=== PATIENT | female | born 1945 | race Caucasian/White ===

== ENCOUNTER → 2016-04-22 | Outpatient (CLI) | payer MEDICARE, MEDICAID ==
[~2016-04-22] MED LIST: /ALEN70TA OR; /DULO30CA OR; /PANT40TA OR; ACET65TA OR; ALEN10TA2 OR; AMBI5TAB OR; AMLO5TAB OR; ASPI81TA3 OR; BACL10TA2 OR; BISA10SU2 PR; BISA5TA OR; CALTRATE 600+D PO; CELE40TA OR; COLA100C2 OR; COZA100T OR; DEPA500T2 OR; ENOX40SY SC; FIBERCHOICE PO; LIDO5DIS TD; MILKSUS OR; NORV5TAB OR; ONE A DAY WOMENS PO; OPAN10TA17 OR; OXYC10TA12 OR; PANTOPRAZOLE PO; PERC5TAB8 OR; PERC7.5T8 OR; RANI150C OR; SIMV20TA2 OR; VESICARE PO; VITAMIN D50000 UNT OR; VOLTARIN PO; dulcolax
== END ==
LOC: M HL 13:51
PROVIDERS: ATTEND Nurse Practitioner Family
DX: R63.5 Abnormal weight gain (principal); Z98.84 Bariatric surgery status

== ENCOUNTER → 2016-05-07 | Outpatient (CLI) | payer MEDICARE, MEDICAID | END | disposition home or self-care (01) | LOC: M HL 10:17 | PROVIDERS: ATTEND Nurse Practitioner Family | DX: Z98.84 Bariatric surgery status (principal); R63.5 Abnormal weight gain ==

== ENCOUNTER → 2016-05-21 | Outpatient (CLI) | payer MEDICARE, MEDICAID | LOC: M HL 12:55 | PROVIDERS: ATTEND Nurse Practitioner Family | DX: Z98.84 Bariatric surgery status (principal); R63.5 Abnormal weight gain; R73.03 Prediabetes ==

== ENCOUNTER 2016-12-15 08:03 | Day surgery (SDC) | payer MEDICARE, MEDICAID ==
[~2016-12-15] VITALS: Ht 160 cm; Wt 98.4 kg
[~2016-12-15 08:03] MED LIST changes: +ACETAMINOPHEN 325 MG TAB PO PRN; +ACETYLCHOLINE OPHTH SOLN 1% 2ML (MIOCHOL-E) As Ordered ONE; +AMPH10CA PO; +BSS with VANC/TOB/EPI for EYE CASES IR ONE; +BUPR1TAB52 PO; +CALTCHW4 PO; +CEFUROXIME 1MG/0.1ML INTRACAMERAL INJ As Ordered ONE; +CENTTAB36 PO; +CYCLOPENTOLATE 2% OPHTH SOLN 2ML BTL OD ONE; +DRIS50002 PO; +DULO1CAP3 PO; +FE G325T PO; +FENT50PA TD; +FERR32TA PO; +FOSA70TA PO; +HEALON DUET (HEALON 10MG/ML 0.55ML & HEALON ENDOCOAT 30MG/ML 0.85ML) As Ordered ONE; +LIDOCAINE 1% SDV 5 ML VIAL As Ordered ONE; +LIDOCAINE 3.5 % 1ML OPHTH TOPICAL GEL OU ONE; +LR 500 ML IV ONE; +MIDAZOLAM INJ 2 MG/2 ML VIAL (J2250) As Ordered ONE; +MOXIFLOXACIN IN BSS 0.25MG/0.25ML INTRACAMERAL INJ (OR EYE ONLY)(J2280) As Ordered ONE; +OFLOXACIN 0.3 % (OCUFLOX) OPTH SOL 5ML OD ONE; +OMEP20CA3 PO; +PHENYLEPHRINE 2.5% OPHTH SOL 2ML OD ONE; +POVIDONE-IODINE 5% OPHTH PREP SOL 30ML As Ordered ONE; +PROPARACAINE 0.5% OPHTH SOL 15ML OD PRN; +ROPI0.25 PO; +THYR60TA SL; +TRAV04OPD OU; +TRAZ50TA11 PO; +TRIAMCINOLONE PRES FR 40 MG/ML 1ML(TRIESENCE)(OR EYE ONLY)(J3300 PER 1MG) As Ordered ONE; +TROPICAMIDE 1% OPHTH SOLN 2ML OD ONE; +[UNRECOGNIZED DRUG - CODE] SL; +fentaNYL 100 MCG/2 ML INJECTION (J3010) As Ordered ONE
[2016-12-15] MEDS ORDERED: LIDOCAINE 1% SDV 5 ML VIAL SQ PRN (08:15)
[2016-12-15] MEDS ORDERED: HEALON DUET (HEALON 10MG/ML 0.55ML & HEALON ENDOCOAT 30MG/ML 0.85ML) As Ordered ONE (09:28)
[2016-12-15] MEDS ORDERED: KETOROLAC 0.5% OPHTH SOLN OD ONE (09:30)
[2016-12-15] MEDS ORDERED: AcetaZOLAMIDE 500 MG ER CAP PO ONE (09:30)
[2016-12-15] MEDS ORDERED: TRIMETHOBENZAMIDE 300 MG CAP PO PRN (09:30)
[2016-12-15 09:35] VITALS: BP 115/65
--- NOTE | 2016-12-15 09:37 | RO ---
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 PROCEDURE: Phacoemulsification with intraocular lens implantation along with insertion of the Malyugin ring with endocyclophotocoagulation and placement of the Glaukos iStent intraocular lens (IOL) power was HOYA +21.5 diopters. SURGEON: Dr. Amee Rogers MANAGER QA: None. ANESTHESIA: COMPLICATIONS: None. DESCRIPTION OF PROCEDURE: The patient was brought to the operating room and laid in the supine position. The eye was prepped and draped in a sterile fashion for ophthalmic surgery and a lid speculums was placed. A sideport incision was made and Entocort was injected into the anterior chamber. Temporal clear corneal incision was made with a 2.5 mm keratome followed by placement of the 7 mm Malyugin ring with the help of the editorial manager. The pupil was then nicely dilated. This was followed by a capsulorrhexis and hydrodissection. The nucleus was rotated within the capsular bag and phacoemulsification was carried out in a divide and conquer method within the capsular bag. Cortical material was then aspirated using irrigation and aspiration cannula. Healon was placed in the capsular bag and in the intraocular lens inserted. Healon was then placed in the ciliary sulcus and the ciliary processes were visualized on the video screen with the help of the EndoProbe. Endocyclophotocoagulation was the done 280 degrees at 0.25 mW under direct visualization. Good results were noted as noted by shaking of the ciliary processes. Healon was then placed into the anterior chamber to visualize the infranasal. Trabecular iStent was then placed. Good reflex was noted. This was done under high magnification with the patient's head turned away from the surgeon. Excess viscoelastic was aspirated. The wound was hydrated. The lid speculum was removed. The patient was returned to the recovery room in stable condition.
== END 2016-12-15 10:21 | disposition home or self-care (01) ==
LOC: M SDC 08:03
PROVIDERS: ATTEND Ophthalmology
DX: H25.9 Unspecified age-related cataract (principal); H40.9 Unspecified glaucoma; H57.03 Miosis; I10 Essential (primary) hypertension; E78.5 Hyperlipidemia, unspecified; R73.03 Prediabetes; H21.9 Unspecified disorder of iris and ciliary body; Z88.0 Allergy status to penicillin; Z79.899 Other long term (current) drug therapy; Z92.3 Personal history of irradiation; Z92.21 Personal history of antineoplastic chemotherapy; Z87.891 Personal history of nicotine dependence; Z86.79 Personal history of other diseases of the circulatory system
CPT/HCPCS: 66183; 66711; 66982; C1783; J2250; J2280; J3010; V2632

== ENCOUNTER 2016-12-19 18:38 | Emergency (ER) | payer MEDICARE, MEDICAID ==
[~2016-12-19] VITALS: Ht 160 cm; Wt 99.1 kg
[2016-12-19 18:38] VITALS: BP 162/114
[~2016-12-19 18:38] MED LIST changes: -ACETAMINOPHEN 325 MG TAB PO PRN; -ACETYLCHOLINE OPHTH SOLN 1% 2ML (MIOCHOL-E) As Ordered ONE; -BSS with VANC/TOB/EPI for EYE CASES IR ONE; -CEFUROXIME 1MG/0.1ML INTRACAMERAL INJ As Ordered ONE; -CYCLOPENTOLATE 2% OPHTH SOLN 2ML BTL OD ONE; -HEALON DUET (HEALON 10MG/ML 0.55ML & HEALON ENDOCOAT 30MG/ML 0.85ML) As Ordered ONE; -LIDOCAINE 1% SDV 5 ML VIAL As Ordered ONE; -LIDOCAINE 3.5 % 1ML OPHTH TOPICAL GEL OU ONE; -LR 500 ML IV ONE; -MIDAZOLAM INJ 2 MG/2 ML VIAL (J2250) As Ordered ONE; -MOXIFLOXACIN IN BSS 0.25MG/0.25ML INTRACAMERAL INJ (OR EYE ONLY)(J2280) As Ordered ONE; -OFLOXACIN 0.3 % (OCUFLOX) OPTH SOL 5ML OD ONE; -PHENYLEPHRINE 2.5% OPHTH SOL 2ML OD ONE; -POVIDONE-IODINE 5% OPHTH PREP SOL 30ML As Ordered ONE; -PROPARACAINE 0.5% OPHTH SOL 15ML OD PRN; -TRIAMCINOLONE PRES FR 40 MG/ML 1ML(TRIESENCE)(OR EYE ONLY)(J3300 PER 1MG) As Ordered ONE; -TROPICAMIDE 1% OPHTH SOLN 2ML OD ONE; -fentaNYL 100 MCG/2 ML INJECTION (J3010) As Ordered ONE
[2016-12-19] MEDS ORDERED: PRED1SUS (18:48)
[2016-12-19] MEDS ORDERED: ACUV0.45 (18:48)
[2016-12-19] MEDS ORDERED: TOBR0.3S (18:48)
--- NOTE | 2016-12-19 22:10 | REPUSA ---
Clinical statement: Pain, swelling. Findings: Venous Doppler imaging of the right upper extremity was performed. The internal jugular vei n compresses normally and demonstrates normal color Doppler flow. Normal venous wave forms are seen w ithin the subclavian vein. The axillary, brachial, and basilic veins compress normally and demonstrat e normal color Doppler flow. Normal augmentation is seen. Impression: No evidence of deep vein thrombosis in the right upper extremity.
== END 2016-12-19 23:02 | disposition home or self-care (01) ==
LOC: M ED 18:38
DX: M79.641 Pain in right hand (principal); M25.531 Pain in right wrist; I10 Essential (primary) hypertension; D64.9 Anemia, unspecified; E78.5 Hyperlipidemia, unspecified; F41.9 Anxiety disorder, unspecified; M51.36 Other intervertebral disc degeneration, lumbar region; Z87.19 Personal history of other diseases of the digestive system; Z86.69 Personal history of other diseases of the nervous system and sense organs; Z86.718 Personal history of other venous thrombosis and embolism; Z87.39 Personal history of other diseases of the musculoskeletal system and connective tissue; Z98.0 Intestinal bypass and anastomosis status; Z98.890 Other specified postprocedural states; Z87.891 Personal history of nicotine dependence

== ENCOUNTER → 2018-01-22 | Outpatient (CLI) | payer MEDICARE, MEDICAID ==
[2018-01-22 15:20] LABS: HEMATOCRIT 43.7 % (36.0-47.0); HEMOGLOBIN 14.1 g/dl (12.0-15.5); MEAN CORPUSCULAR HEMOGLOBIN 31.1 pg (27.0-33.0); MEAN CORPUSCULAR HGB CONC 32.3 g/dl (32.0-36.5); MEAN CORPUSCULAR VOLUME 96.5 fl (80.0-96.0); PLATELET COUNT, AUTOMATED 301 10^3/uL (150-450); RED BLOOD COUNT 4.53 10^6/uL (4.00-5.40); RED CELL DISTRIBUTION WIDTH 14.3 % (11.5-14.5)
[2018-01-22 15:44] LABS: ALBUMIN 3.4 GM/DL (3.2-5.2); ALBUMIN/GLOBULIN RATIO 1.17 (1.00-1.93); ALKALINE PHOSPHATASE 104 U/L (45-117); ALT/SGPT 20 U/L (12-78); ANION GAP 6 MEQ/L (8-16); AST/SGOT 30 U/L (7-37); BILIRUBIN,TOTAL 0.5 MG/DL (0.2-1.0); BLOOD UREA NITROGEN 10 MG/DL (7-18); CALCIUM LEVEL 8.8 MG/DL (8.8-10.2); CARBON DIOXIDE LEVEL 29 MEQ/L (21-32); CHLORIDE LEVEL 109 MEQ/L (98-107); CHOLESTEROL LEVEL 183 MG/DL (<200); CHOLESTEROL RISK RATIO 2.815 (<5); GLOMERULAR FILTRATION RATE > 60.0 (>39); GLUCOSE, FASTING 87 MG/DL (70-100); HDL CHOLESTEROL 65 MG/DL (>40); LDL CHOLESTEROL 105 MG/DL (<100); NON-HDL-C 118 MG/DL; POTASSIUM SERUM 4.2 MEQ/L (3.5-5.1); SODIUM LEVEL 144 MEQ/L (136-145); TOTAL PROTEIN 6.3 GM/DL (6.4-8.2); TRIGLYCERIDES LEVEL 64 MG/DL (<150)
== END ==
LOC: M LAB 13:42
DX: G25.81 Restless legs syndrome (principal); M54.6 Pain in thoracic spine; M53.3 Sacrococcygeal disorders, not elsewhere classified; M51.36 Other intervertebral disc degeneration, lumbar region; I10 Essential (primary) hypertension; M47.817 Spondylosis without myelopathy or radiculopathy, lumbosacral region; M70.60 Trochanteric bursitis, unspecified hip
CPT/HCPCS: 72072

== ENCOUNTER → 2018-02-05 | Outpatient (CLI) | payer MEDICARE, MEDICAID | LOC: M RAD 18:05 | DX: M53.3 Sacrococcygeal disorders, not elsewhere classified (principal); I10 Essential (primary) hypertension; M46.1 Sacroiliitis, not elsewhere classified; M51.36 Other intervertebral disc degeneration, lumbar region | CPT/HCPCS: 72146 ==

== ENCOUNTER 2018-04-27 07:08 | Day surgery (SDC) | payer MEDICARE, MEDICAID ==
[~2018-04-27] VITALS: Ht 154.9 cm; Wt 80.3 kg
[~2018-04-27 07:08] MED LIST changes: +ACUV0.45; +BRIN10TA4 PO; -DRIS50002 PO; +DRIS50003 PO; +FENT1DIS35 TD; +LR 1,000 ML IV ONE; +PRED1SUS2; -ROPI0.25 PO; +ROPI0.253 PO; +THYR60TA PO; +TOBR0.3S; +TRAZ-160 PO; -TRAZ50TA11 PO; +XALA0.007 OU; +ceFAZolin SOD 1 GM in D5W MINI-BAG PLUS 50 ML IV ONE
[2018-04-27] MEDS ORDERED: LIDOCAINE 1% MDV 20ML VIAL As Ordered ONE (08:39)
[2018-04-27] MEDS ORDERED: BUPIVACAINE/EPIN 0.25% 30 ML VIAL As Ordered ONE (09:46)
[2018-04-27] MEDS ORDERED: LIDOCAINE 1% SDV INJ 30 ML VIAL As Ordered ONE (09:47)
[2018-04-27] MEDS ORDERED: LIDOCAINE 2% INJ 100 MG/5 ML SDV (FOR ANES.) As Ordered ONE (09:52)
[2018-04-27] MEDS ORDERED: PROPOFOL 200 MG/20 ML VIAL As Ordered ONE ×2 (09:52→11:17)
[2018-04-27] MEDS ORDERED: MIDAZOLAM INJ 2 MG/2 ML VIAL (J2250) As Ordered ONE (09:52)
[2018-04-27] MEDS ORDERED: fentaNYL 100 MCG/2 ML INJECTION (J3010) As Ordered ONE (09:52)
[2018-04-27] MEDS ORDERED: LevoFLOXacin(LEVAQUIN)500 MG/100 ML BAG (J1956) As Ordered ONE (09:55)
[2018-04-27] MEDS ORDERED: LevoFLOXacin IV 500 MG in APPROPRIATE DILUENT 1 EA IV ONE (10:15)
[2018-04-27 11:33] VITALS: BP 103/54
--- NOTE | 2018-04-27 12:44 | REP ---
Specimen radiography: Left breast. History: Needle localization directed excisional biopsy for microcalcifications. Findings: Single view. Specimen demonstrates that the specimen contains at least two of the microcalcifications from the target grouping. These are adjacent to the localizer wire at the edge of the specimen. No other microcalcification is appreciated. Impression: At least two of the microcalcifications from the target cluster are contained within the excised specimen. Electronically Signed by Jimmy Russell MD 04/27/2018 11:22 A
--- NOTE | 2018-04-27 17:35 | REP ---
LEFT BREAST LOCALIZATION The procedure was performed under the direct supervision of Dr. Russell. The patient has a history of an a cluster of microcalcifications in the central areolar region seen on a [facility] mamm[facility] performed under 02/08/2018. A stereotactic left breast biopsy was attempted on 02/11/2018, however, there was not enough compression thickness for advancement of the needle. The risks and benefits of the procedure were explained to the patient and informed consent was obtained. A cranial caudal approach was utilized. The calcifications were localized using mammographic guidance. The skin was prepped and draped in a sterile fashion. 1% lidocaine was used as a local anesthetic. A 7.5 cm Grafton needle wire was inserted. Follow-up mammographic images demonstrate good needle placement. The patient tolerated the procedure well and there were no immediate complications. Reviewed by TESSA Ibrahim 04/27/2018 03:23 P Electronically Signed by Jimmy Russell MD 04/27/2018 05:26 P
--- NOTE | 2018-04-27 19:27 | ECGEPIP ---
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
--- NOTE | 2018-05-01 04:03 | RO ---
DATE OF PROCEDURE: 04/27/2018 PREOPERATIVE DIAGNOSIS: Left breast microcalcifications (abnormal mammogram). POSTOPERATIVE DIAGNOSIS: Left breast microcalcifications (abnormal mammogram). PROCEDURE: Left breast biopsy (after needle localization). SURGEON: Dr. David Garduno ANESTHESIA: Local plus sedation. ESTIMATED BLOOD LOSS: Minimal. FLUIDS: Crystalloid. BRIEF PROCEDURE SUMMARY: The patient was brought to the radiology suite where a needle localization of microcalcifications was performed. Once this was performed. The patient was brought to the operating room was prepped and draped in sterile fashion. Local lidocaine was infiltrated after adequate sedation was obtained. An elliptical incision around the needle itself was made and then using Allis clamps on each side and needle a core of tissue and then a sphere of tissue around the end of the needle/hook was performed with a combination of blunt and sharp dissection well as well as electrocautery and eventually this tissue was removed in its entirety. The needle was not seen on removal of this suggesting that adequate margins were obtained. This was sent to radiology and indeed microcalcifications were identified on the post biopsy specimen. The incision then was copiously irrigated until clear. Electrocautery was used to provide hemostasis and the dermis was brought together with 3-0 Vicryl, 4-0 Vicryl was used to approximate the skin. Steri-Strips and dry sterile dressing was applied. The patient was awakened from her anesthesia, brought to the recovery room awake, alert, hemodynamically stable. Sponge and needle counts correct times two.
== END 2018-04-27 12:45 | disposition home or self-care (01) ==
LOC: M SDC 07:08
PROVIDERS: ATTEND Surgery
DX: R92.1 Mammographic calcification found on diagnostic imaging of breast (principal); I10 Essential (primary) hypertension; E78.00 Pure hypercholesterolemia, unspecified; R73.01 Impaired fasting glucose; E03.9 Hypothyroidism, unspecified; E55.9 Vitamin D deficiency, unspecified; G25.81 Restless legs syndrome; K57.30 Diverticulosis of large intestine without perforation or abscess without bleeding; K21.9 Gastro-esophageal reflux disease without esophagitis; M12.9 Arthropathy, unspecified; M81.0 Age-related osteoporosis without current pathological fracture; M70.62 Trochanteric bursitis, left hip; B39.9 Histoplasmosis, unspecified; R06.83 Snoring; F32.9 Major depressive disorder, single episode, unspecified; Z88.0 Allergy status to penicillin; Z79.899 Other long term (current) drug therapy; Z92.21 Personal history of antineoplastic chemotherapy; Z86.718 Personal history of other venous thrombosis and embolism; Z87.81 Personal history of (healed) traumatic fracture; Z87.820 Personal history of traumatic brain injury; Z86.69 Personal history of other diseases of the nervous system and sense organs; Z78.0 Asymptomatic menopausal state; Z92.3 Personal history of irradiation; Z96.653 Presence of artificial knee joint, bilateral; Z98.84 Bariatric surgery status; Z96.1 Presence of intraocular lens
CPT/HCPCS: 19101; 76098; 88305; 93005; J1956; J2250; J3010

== ENCOUNTER → 2018-08-02 | Outpatient (CLI) | payer OTHER, MEDICAID ==
[~2018-08-02] MED LIST changes: -/DULO30CA OR; -/PANT40TA OR; +CYMB1CAP5 OR; -ENOX40SY SC; +FENT50DI33 TD; -FENT50PA TD; +LOVE1INJ SC; -LR 1,000 ML IV ONE; +PROT1TAB2 OR; -ceFAZolin SOD 1 GM in D5W MINI-BAG PLUS 50 ML IV ONE
[2018-08-02 10:57] LABS: HEMATOCRIT 42.9 % (36.0-47.0); HEMOGLOBIN 14.2 g/dl (12.0-15.5); MEAN CORPUSCULAR HEMOGLOBIN 29.7 pg (27.0-33.0); MEAN CORPUSCULAR HGB CONC 33.1 g/dl (32.0-36.5); MEAN CORPUSCULAR VOLUME 89.7 fl (80.0-96.0); PLATELET COUNT, AUTOMATED 294 10^3/uL (150-450); RED BLOOD COUNT 4.78 10^6/uL (4.00-5.40); WHITE BLOOD COUNT 3.7 10^3/uL (4.0-10.0)
[2018-08-02 11:27] LABS: ALBUMIN 3.2 GM/DL (3.2-5.2); ALT/SGPT 26 U/L (12-78); BILIRUBIN,TOTAL 0.8 MG/DL (0.2-1.0); BLOOD UREA NITROGEN 8 MG/DL (7-18); CALCIUM LEVEL 8.5 MG/DL (8.8-10.2); CARBON DIOXIDE LEVEL 29 MEQ/L (21-32); CHLORIDE LEVEL 110 MEQ/L (98-107); CHOLESTEROL LEVEL 165 MG/DL (<200); CHOLESTEROL RISK RATIO 2.704 (<5); CREATININE FOR GFR 0.74 MG/DL (0.55-1.30); GLOMERULAR FILTRATION RATE > 60.0 (>39); GLUCOSE, FASTING 87 MG/DL (70-100); HDL CHOLESTEROL 61 MG/DL (>40); LDL CHOLESTEROL 93 MG/DL (<100); NON-HDL-C 104 MG/DL; POTASSIUM SERUM 3.8 MEQ/L (3.5-5.1); SODIUM LEVEL 142 MEQ/L (136-145); TOTAL PROTEIN 6.2 GM/DL (6.4-8.2); TRIGLYCERIDES LEVEL 53 MG/DL (<150)
[2018-08-02 11:46] LABS: TOTAL 25(OH) VITAMIN D 75.1 NG/ML (30.0-100.0)
== END ==
LOC: M LAB 10:32
PROVIDERS: ATTEND Nurse Practitioner Family
DX: E03.9 Hypothyroidism, unspecified (principal); E55.9 Vitamin D deficiency, unspecified; I10 Essential (primary) hypertension; E78.5 Hyperlipidemia, unspecified

== ENCOUNTER → 2018-08-31 | Outpatient (CLI) | payer MEDICARE, MEDICAID ==
[~2018-08-31] MED LIST changes: -TRAZ-160 PO; +TRAZ-252 PO
--- NOTE | 2018-08-31 18:04 | REP ---
Clinical: Pain. Technique: AP, lateral, bilateral oblique views of the left ankle. Findings: Moderate swelling suggested. Generalized age-related changes noted. Lateral view demonstrates moderate calcaneal heal spur. No acute fracture dislocation. Ankle mortise appears intact. Impression: Generalized age-related changes. Soft tissue swelling. Electronically Signed by Jayson Levin MD 08/31/2018 05:55 P
--- NOTE | 2018-08-31 18:05 | REP ---
Clinical: Swelling and pain. Technique: AP, lateral, bilateral oblique views of the left foot. Findings: Generalized age-related degenerative changes are appreciated. No acute fracture dislocation. No subcutaneous emphysema or radiodense foreign body. Moderate calcaneal heal spur. Impression: Generalized age-related changes. Soft tissue swelling. Electronically Signed by Jayson Levin MD 08/31/2018 05:56 P
== END ==
LOC: M LRY 17:35
PROVIDERS: ATTEND Nurse Practitioner Family
DX: M25.472 Effusion, left ankle (principal); M25.475 Effusion, left foot; M77.32 Calcaneal spur, left foot; M25.572 Pain in left ankle and joints of left foot
CPT/HCPCS: 73610; 73630; G0463

== ENCOUNTER 2019-05-08 03:54 | Emergency (ER) | payer MEDICARE, MEDICAID ==
[~2019-05-08] VITALS: Ht 157.5 cm; Wt 88.6 kg
[~2019-05-08 03:54] MED LIST changes: -AMPH10CA PO; +AMPH1CAP14 PO; -DULO1CAP3 PO; +DULO1CAP6 PO; +OMEP1CAP73 PO; -OMEP20CA3 PO
[2019-05-08] MEDS ORDERED: METH1TAB40 (04:14)
[2019-05-08] MEDS ORDERED: HYDR2TAB2 (04:14)
[2019-05-08] MEDS ORDERED: HYDR1CAP25 (04:14)
--- NOTE | 2019-05-08 05:44 | REPVR ---
PROCEDURE INFORMATION: Exam: CT Lumbar Spine Without Contrast Exam date and time: 05/08/2019 4:58 AM Age: 74 years old Clinical indication: Low back pain; Prior surgery; Surgery date: 3-7 days post-operative; Surgery type: Laminectomy, thoracolumbar with decompression and a fusion of l4-l5; Additional info: Post op pain TECHNIQUE: Imaging protocol: Computed tomography images of the lumbar spine without contrast. Radiation optimization: All CT scans at this facility use at least one of these dose optimization techniques: automated exposure control; mA and/or kV adjustment per patient size (includes targeted exams where dose is matched to clinical indication); or iterative reconstruction. COMPARISON: MRI-Spine, L.S. without con 07/14/2017 11:25 AM FINDINGS: Vertebrae: No acute fracture or subluxation. Discs/Spinal canal/Neural foramina: Status post posterior decompression and posterior spinal fusion at L4-L5. There are bilateral pedicle screws and eloy instrumentation extending from L4-L5 and there is bilateral posterolateral bone graft. No instrumentation failure. Evaluation of the spinal canal is suboptimal secondary to artifact from fusion hardware and lack of IV contrast as well as the CT technique. No bony spinal stenosis. Degenerative facet arthrosis is present at L3-L4, L4-L5 and L5-S1. There is a mild scoliosis of the lumbar spine, apex to the left. Sacrum/coccyx: The sacroiliac joints are intact. Other bones/joints: Bone fusion donor site within the left ilium is noted. No retained radiopaque surgical foreign body. Gallbladder and bile ducts: There are numerous stones within the gallbladder. Intraperitoneal space: There are multiple surgical clips within the upper abdomen IMPRESSION: 1. Changes from recent posterior decompression and spinal fusion at L4-L5. No instrumentation failure is identified. The spinal canal contents are inadequately visualized due to artifact from orthopedic hardware and lack of IV contrast. 2. Degenerative facet arthrosis from L3-S1. Electronically signed by: Antelmo Calderon On 05/08/2019 05:46:36 AM
[2019-05-08] MEDS ORDERED: KETAMINE HCL IV ONE (06:00)
[2019-05-08] MEDS ORDERED: NS IV ONE (06:00)
[2019-05-08 06:27] VITALS: BP 128/64
== END 2019-05-08 06:29 | disposition home or self-care (01) ==
LOC: M ED 03:54
DX: G89.18 Other acute postprocedural pain (principal); Z98.890 Other specified postprocedural states; Z98.1 Arthrodesis status; Z98.84 Bariatric surgery status; K21.9 Gastro-esophageal reflux disease without esophagitis; D50.9 Iron deficiency anemia, unspecified; F41.9 Anxiety disorder, unspecified; F32.9 Major depressive disorder, single episode, unspecified; Z79.899 Other long term (current) drug therapy; Z88.0 Allergy status to penicillin

== ENCOUNTER → 2020-01-19 | Outpatient (CLI) | payer MEDICARE, MEDICAID ==
[~2020-01-19] MED LIST changes: +ALEN70TA74; +HYDR1CAP25; +HYDR2TAB2; +METH1TAB40
--- NOTE | 2020-01-19 14:10 | REPMRS ---
Patient History The patient states she has not had a clinical breast exam in over a year. Patient is postmenopausal and had first child at age 38. Family history of breast cancer at age 56 in mother. Benign radio exam breast specimen of the left breast, April 27, 2018. Benign localization of breast nodule of the left breast, April 27, 2018. Stereotactic core biopsy of the left breast, February 11, 2018. Took hormonal contraceptives for 15 years. Digital Woman Screen Mammo: January 19, 2020 - Exam #: [id number] Bilateral CC and MLO view(s) were taken. Technologist: Sally Reynolds, Technologist Prior study comparison: January 25, 2018, bilateral digital mammo screening bilat, performed at [facility] [employer]. November 10, 2016, bilateral digital mammo screening bilat, performed at [facility] [employer]. January 17, 2015, digital woman screen mammo performed at [facility]. FINDINGS: There are scattered fibroglandular densities. The Volpara volumetric breast density category is:B. There is mild postoperative scarring at approximately 12 o'clock position in the left breast status post benign excisional biopsy. There has been no other change in the appearance of the mammogram from the prior studies. There is a mild amount of scattered fibroglandular density which is fairly symmetric. There is no interval development of dominant mass, architectural distortion, or grouped microcalcification suggestive of malignancy. 3-D tomosynthesis shows no additional findings. Assessment: BI-RADS/ACR category 2 mammogram. Benign Findings. Recommendation Routine screening mammogram of both breasts in 1 year (for women over age 40). This patient's Lifetime Breast Cancer Risk is estimated at 11.9 %. This mammogram was interpreted with the aid of an FDA-approved computer-aided dectection system. Electronically Signed By: Jericho Russell MD 01/19/20 [id number]
== END ==
LOC: M WHC 13:14
PROVIDERS: ATTEND Nurse Practitioner Family
DX: Z12.31 Encounter for screening mammogram for malignant neoplasm of breast (principal); Z80.3 Family history of malignant neoplasm of breast; Z86.018 Personal history of other benign neoplasm; Z92.0 Personal history of contraception

== ENCOUNTER → 2020-01-20 | Outpatient (CLI) | payer MEDICARE, MEDICAID | LOC: M LABSMTC 13:12 | PROVIDERS: ATTEND Anesthesiology | DX: Z01.812 Encounter for preprocedural laboratory examination (principal); Z20.828 Contact with and (suspected) exposure to other viral communicable diseases | CPT/HCPCS: C9803; U0003 ==

== ENCOUNTER 2020-01-25 09:35 | Day surgery (SDC) | payer MEDICARE, MEDICAID ==
[~2020-01-25] VITALS: Ht 165.1 cm; Wt 100.2 kg
[~2020-01-25 09:35] MED LIST changes: +NS 1,000 ML IV ONE
[2020-01-25] MEDS ORDERED: LIDOCAINE 2% 100MG/5ML SDV (FOR ANES.) As Ordered ONE (10:28)
[2020-01-25] MEDS ORDERED: propofoL 500 MG/50 ML VIAL As Ordered ONE (10:28)
--- NOTE | 2020-01-25 10:52 | ROOR ---
Patient Name: Lola Saldaña Procedure Date: 01/25/2020 10:25 AM Date of : 1945 Age: 74 Room: [facility] Gender: Female Note Status: Finalized Procedure: Total Colonoscopy to Cecum + ileoscopy + Bx Indications: Clinically significant diarrhea of unexplained origin Providers: Zack Ronquillo MD Referring MD: Winsome Marsh NP Requesting Provider: Medicines: Monitored Anesthesia Care Complications: No immediate complications. Procedure: Pre-Anesthesia Assessment: - The heart rate, respiratory rate, oxygen saturations, blood pressure, adequacy of pulmonary ventilation, and response to care were monitored throughout the procedure. The Colonoscope was introduced through the anus and advanced to the ileocecal valve. The colonoscopy was performed without difficulty. The patient tolerated the procedure well. The quality of the bowel preparation was excellent. Findings: The perianal and digital rectal examinations were normal. Non-bleeding internal hemorrhoids were found during retroflexion. The hemorrhoids were small and Grade I (internal hemorrhoids that do not prolapse). Multiple small and large-mouthed diverticula were found in the recto-sigmoid colon, sigmoid colon and descending colon. Biopsies for histology were taken with a cold forceps from the ascending colon, transverse colon, descending colon and rectosigmoid colon for evaluation of microscopic colitis. The exam was otherwise without abnormality on direct and retroflexion views. The terminal ileum appeared normal. Impression: - Non-bleeding internal hemorrhoids. - Diverticulosis in the recto-sigmoid colon, in the sigmoid colon and in the descending colon. - The examination was otherwise normal on direct and retroflexion views. - Biopsies were taken with a cold forceps from the ascending colon, transverse colon, descending colon and rectosigmoid colon for evaluation of microscopic colitis. - The exam was otherwise normal to the cecum. Recommendation: - Patient has a contact number available for emergencies. The signs and symptoms of potential delayed complications were discussed with the patient. Return to normal activities tomorrow. Written discharge instructions were provided to the patient. - Resume previous diet. - Discharge patient to home. - Continue present medications. - Await pathology results. - Telephone GI clinic for pathology results in 1 week. - Repeat colonoscopy is not recommended due to current age (66 years or older) for surveillance. - The findings and recommendations were discussed with the patient. Zack Ronquillo MD Zack Ronquillo MD 01/25/2020 10:52:03 AM Electronically signed by Zack Ronquillo MD Number of Addenda: 0 Note Initiated On: 01/25/2020 10:25 AM Estimated Blood Loss: Estimated blood loss: none.
[2020-01-25 11:19] VITALS: BP 126/58
== END 2020-01-25 11:22 | disposition home or self-care (01) ==
LOC: M OPP 09:35
PROVIDERS: ATTEND Internal Medicine Gastroenterology
DX: R19.7 Diarrhea, unspecified (principal); Z86.010 Personal history of colon polyps; K64.0 First degree hemorrhoids; K57.90 Diverticulosis of intestine, part unspecified, without perforation or abscess without bleeding

== ENCOUNTER → 2020-02-02 | Outpatient (CLI) | payer MEDICARE, MEDICAID ==
[~2020-02-02] MED LIST changes: -NS 1,000 ML IV ONE
[2020-02-02 15:57] LABS: BLOOD UREA NITROGEN 11 MG/DL (7-18); CREATININE FOR GFR 0.83 MG/DL (0.55-1.30); GLOMERULAR FILTRATION RATE > 60.0 (>39)
== END ==
LOC: M LAB 14:48
PROVIDERS: ATTEND Physician Assistant Medical
DX: M54.5 Low back pain (principal); Z98.1 Arthrodesis status

== ENCOUNTER → 2020-03-13 | Outpatient (CLI) | payer MEDICARE, MEDICAID ==
[2020-03-13 11:02] LABS: HEMATOCRIT 35.1 % (36.0-47.0); HEMOGLOBIN 10.1 g/dl (12.0-15.5); MEAN CORPUSCULAR HEMOGLOBIN 21.6 pg (27.0-33.0); MEAN CORPUSCULAR HGB CONC 28.8 g/dl (32.0-36.5); PLATELET COUNT, AUTOMATED 376 10^3/uL (150-450); RED BLOOD COUNT 4.68 10^6/uL (4.00-5.40); WHITE BLOOD COUNT 5.5 10^3/uL (4.0-10.0)
[2020-03-13 11:41] LABS: ALBUMIN 3.4 GM/DL (3.2-5.2); ALT/SGPT 15 U/L (12-78); BILIRUBIN,TOTAL 0.5 MG/DL (0.2-1.0); BLOOD UREA NITROGEN 13 MG/DL (7-18); CALCIUM LEVEL 8.8 MG/DL (8.8-10.2); CARBON DIOXIDE LEVEL 27 MEQ/L (21-32); CHLORIDE LEVEL 109 MEQ/L (98-107); CHOLESTEROL LEVEL 223 MG/DL (<200); CHOLESTEROL RISK RATIO 2.423 (<5); GLOMERULAR FILTRATION RATE > 60.0 (>39); GLUCOSE, FASTING 85 MG/DL (70-100); HDL CHOLESTEROL 92 MG/DL (>40); LDL CHOLESTEROL 115 MG/DL (<100); NON-HDL-C 131 MG/DL; SODIUM LEVEL 142 MEQ/L (136-145); TOTAL PROTEIN 6.6 GM/DL (6.4-8.2); TRIGLYCERIDES LEVEL 80 MG/DL (<150)
== END ==
LOC: M LAB 09:39
PROVIDERS: ATTEND Nurse Practitioner Adult Health
DX: E03.9 Hypothyroidism, unspecified (principal); Z98.84 Bariatric surgery status; Z13.220 Encounter for screening for lipoid disorders; Z79.899 Other long term (current) drug therapy

== ENCOUNTER → 2020-03-15 | Outpatient (CLI) | payer MEDICARE, MEDICAID ==
--- NOTE | 2020-03-15 14:59 | REPPI ---
INDICATION: HISTOPLASMOSIS. COMPARISON: No comparison chest x-ray. TECHNIQUE: Two views.. FINDINGS: The lungs are well inflated and clear. Pleural angles are sharp. Heart is not enlarged. The thoracic spine shows a dextroconvex curvature. There are surgical clips in the upper abdomen. A lateral view shows fusion hardware in the upper lumbar spine. Pulmonary vasculature is not increased. IMPRESSION: No active cardiopulmonary disease.. <Electronically signed by Jericho Russell > 03/15/20 [id number]
== END ==
LOC: M PLAIMG 11:52
PROVIDERS: ATTEND Nurse Practitioner Adult Health
DX: B39.9 Histoplasmosis, unspecified (principal)

== ENCOUNTER 2020-10-05 15:12 | Inpatient (IN) | payer MEDICARE, MEDICAID ==
[~2020-10-05] VITALS: Ht 157.5 cm; Wt 102.6 kg
[~2020-10-05 15:12] MED LIST changes: -ALEN70TA74; +ALEN70TA82; +METH-1164; -METH1TAB40
[2020-10-05 16:20] LABS: BASO % 0.4 % (0.0-1.0); EOS # 0.1 10^3/uL (0.0-0.5); EOS % 1.8 % (0.0-3.0); HEMATOCRIT 38.2 % (36.0-47.0); HEMOGLOBIN 11.1 g/dl (12.0-15.5); LYMPH # 3.1 10^3/uL (1.5-5.0); LYMPH % 54.1 % (24.0-44.0); MEAN CORPUSCULAR HEMOGLOBIN 22.5 pg (27.0-33.0); MEAN CORPUSCULAR HGB CONC 29.1 g/dl (32.0-36.5); MEAN CORPUSCULAR VOLUME 77.3 fl (80.0-96.0); MONO # 0.5 10^3/uL (0.0-0.8); MONO % 8.2 % (2.0-8.0); NEUTROPHILS % 35.3 % (36.0-66.0); PLATELET COUNT, AUTOMATED 378 10^3/uL (150-450); RED BLOOD COUNT 4.94 10^6/uL (4.00-5.40); WHITE BLOOD COUNT 5.7 10^3/uL (4.0-10.0)
--- NOTE | 2020-10-05 16:25 | REP ---
INDICATION: SOBOE COMPARISON: 03/15/2020 TECHNIQUE: Portable AP view of the chest FINDINGS: The mediastinum and cardiac silhouette are stable and within normal limits for portable technique. The lung vizcarra are clear without acute consolidation, effusion, or pneumothorax. Skeletal structures are intact. IMPRESSION: No acute cardiopulmonary process appreciated. <Electronically signed by Jayson Levin > 10/05/20 [id number]
[2020-10-05 16:45] LABS: ALBUMIN 2.9 GM/DL (3.2-5.2); ALT/SGPT 29 U/L (12-78); BILIRUBIN,DIRECT 0.2 MG/DL (0.0-0.2); BILIRUBIN,TOTAL 0.4 MG/DL (0.2-1.0); BLOOD UREA NITROGEN 11 MG/DL (7-18); CALCIUM LEVEL 8.3 MG/DL (8.8-10.2); CARBON DIOXIDE LEVEL 25 MEQ/L (21-32); CHLORIDE LEVEL 112 MEQ/L (98-107); CK-MB VALUE MASS < 1.0 NG/ML (<3.6); CPK CREATINE PHOSPHOKINASE 53 U/L (26-192); CREATININE FOR GFR 0.68 MG/DL (0.55-1.30); GLOMERULAR FILTRATION RATE > 60.0 (>39); GLUCOSE, FASTING 85 MG/DL (70-100); LIPASE 88 U/L (73-393); MB/CK RELATIVE INDEX 1.89 (< OR =4); NT-PRO BNP 317 PG/ML (<125); POTASSIUM SERUM 3.8 MEQ/L (3.5-5.1); SODIUM LEVEL 146 MEQ/L (136-145); TOTAL PROTEIN 6.3 GM/DL (6.4-8.2); TROPONIN I < 0.02 NG/ML (< 0.10)
[2020-10-05] MEDS ORDERED: ISOVUE-370 76% 100ML VIAL As Ordered ONE (17:14)
--- NOTE | 2020-10-05 18:03 | REPVR ---
PROCEDURE INFORMATION: Exam: CTA Chest With Contrast Exam date and time: 10/05/2020 5:08 PM Age: 75 years old Clinical indication: Shortness of breath; Additional info: R/O pe TECHNIQUE: Imaging protocol: Computed tomographic angiography of the chest with contrast. 3D rendering (Not supervised by radiologist): MIP and/or 3D reconstructed images were created by the technologist. Radiation optimization: All CT scans at this facility use at least one of these dose optimization techniques: automated exposure control; mA and/or kV adjustment per patient size (includes targeted exams where dose is matched to clinical indication); or iterative reconstruction. Contrast material: ISOVUE 370; Contrast volume: 75 ml; Contrast route: INTRAVENOUS (IV); COMPARISON: CR Chest, 1 view 10/05/2020 4:09 PM FINDINGS: Pulmonary arteries: There are filling defects in the right upper lobe and right lower lobe pulmonary arteries series 401, images 88 -97, series 403, images 63 -65. There is a filling defect in the left lingular branch series 401, images 73-76. Aorta: No aneurysmal dilatation of thoracic aorta or dissection. Atherosclerosis in the aorta and coronary arteries. Lungs: No focal lung consolidation. Minimal subsegmental atelectasis laterally in the lingula. Pleural spaces: No pleural effusion or pneumothorax. Heart: No cardiomegaly or pericardial effusion. Lymph nodes: No significant mediastinal or hilar lymphadenopathy. Gallbladder and bile ducts: Multiple large gallstones. Pancreas: Pancreas is poorly visualized due to artifact from the surgical clips. The stomach is also poorly visualized; probable prior gastric surgery. Spleen: The spleen is unremarkable. Adrenal glands: Probable bilateral adrenal nodules measuring 7.6 mm on the left and 1.1 cm on the right. No follow-up is necessary. (Reference: Nabil) Bones/joints: The No acute fracture. Soft tissues: Surgical clips in the left upper quadrant. IMPRESSION: Bilateral peripheral pulmonary emboli. REFERENCES: Nabil LO, et al. Management of Incidental Adrenal Masses: A White Paper of the ACR Incidental Findings Committee. J Am Delma Radiol. 2017;14(8):1196-2432. Electronically signed by: Massiel Frey On 10/05/2020 18:03:12 PM
[2020-10-05] MEDS ORDERED: ROPI0.5T3 PO ×2 (18:50)
[2020-10-05] MEDS ORDERED: NP T60TA PO (18:50)
[2020-10-05] MEDS ORDERED: BRIN1TAB3 PO (18:50)
[2020-10-05] MEDS ORDERED: CENTCHW4 PO (18:50)
[2020-10-05] MEDS ORDERED: PROC10TA4 PO (18:50)
[2020-10-05] MEDS ORDERED: MECL-86 PO (18:50)
[2020-10-05] MEDS ORDERED: HYDR2TAB2 PO (18:50)
[2020-10-05] MEDS ORDERED: HYDR1CAP25 PO (18:50)
[2020-10-05 19:23] LABS: INR 0.93; PARTIAL THROMBOPLASTIN TIME 27.3 SECONDS (24.2-38.5); PROTHROMBIN TIME 12.7 SECONDS (12.5-14.3)
[2020-10-05 19:31] LABS: RSV AMPLIFICATION NEGATIVE (NEGATIVE)
--- NOTE | 2020-10-05 19:32 | REP ---
INDICATION: multiple PEs COMPARISON: None. TECHNIQUE: Crane scale and color Doppler evaluation using linear high frequency transducer. FINDINGS: Ultrasound examination of the right and left lower extremity deep venous structures from the common femoral vein through the popliteal veins demonstrates normal compressibility flow and wave patterns in response to respiration and augmentation. There is no evidence for deep venous thrombosis. The bilateral veins below the popliteal vein into the calf were not completely evaluated due to body habitus and technical factors. IMPRESSION: No evidence for deep venous thrombosis. <Electronically signed by Jayson Levin > 10/05/20 [id number]
[2020-10-05] MEDS ORDERED: MAALOX 30 ML SUSP *UDC PO PRN (20:15)
[2020-10-05] MEDS ORDERED: MOM 30ML SUSPENSION UDC PO PRN (20:15)
[2020-10-05] MEDS ORDERED: ACETAMINOPHEN TAB 650MG DOSE (2X325MG) PO PRN (20:15)
--- NOTE | 2020-10-05 20:32 | ECGEPIP ---
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
[2020-10-05] MEDS ORDERED: MECLIZINE 25 MG TABLET PO PRN (20:35)
[2020-10-05] MEDS ORDERED: hydrOXYzine 25 MG TAB PO PRN (20:35)
--- NOTE | 2020-10-05 20:45 | HPEPDOC ---
[facility] Medical History & Physical Date of Admission Oct 05, 2020 Date of Service: Oct 05, 2020 Primary Care Physician: Bharti Ambrosio Attending Physician: MARLO HUMPHRIES MD [facility] History and Physical CHIEF COMPLAINT: Shortness of breath HISTORY OF PRESENT ILLNESS: Mrs. Saldaña is a 75 year old female who was sent to the ER by her primary care provider for prolonged QTC. The patient had been sick a couple weeks prior with nausea, vomiting and diarrhea. She was much less mobile than she normally is, having been in bed for several days. She started to feel better but was still not back at baseline and complained to her primary care that it was taking longer than she thought to improve. She was seen by primary care with blood work done and was found to have some elevation of LFTs. She was referred to this facility for outpatient testing including blood work and an ultrasound of the abdomen. This ultrasound showed 2 large gallstones but no signs of acute cholecystitis. The ultrasound did note fatty infiltration of the liver. The patient continued to improve and is now tolerating her regular diet. However, she continued to complain of being short of breath. She was again seen by her primary care today and had an EKG done. They apparently noted a prolonged QTC and sent her by ambulance to the ER. On initial evaluation she was noted to have an elevated blood pressure 182/76. Heart rate was from 56-73 bpm. She was satting 100% on room air and was afebrile. Labs showed continued improvement of her LFTs with AST now at 42 and alkaline phosphatase of 119. Sodium showed some mild elevation 146. BUN/creatinine were within normal limits. BNP was elevated at 317 and there is no previous test for baseline. Denies any history of congestive heart failure. She does have a history of histoplasmosis and has had loss of vision because of it. She also has a complicated history of gastric bypass with several revisions. She has known valvular heart disease. She is not on any blood thinners despite having a history of DVT in the 70s after her first gastric bypass. She also developed a thrombus at the site of a PICC line in her left arm during revisions of her gastric bypass surgeries. Despite PT and PTT being within normal limits, patient was noted to have multiple pulmonary emboli per CTA. Also noted. Minimal subsegmental atelectasis laterally in the lingula. Multiple large gallstones were again noted. Radiology also made mention of bilateral adrenal nodules which do not require any follow-up. Chest x-ray showed no acute pathology. Ultrasound of the bilateral lower extremities was negative for any DVT. Coagulopathy studies are pending. PAST MEDICAL HISTORY: 1. Morbid obesity status post gastric bypass with multiple revisions. 2. Cerebrovascular accident. 3. DVT. 4. Left arm DVT. 5. Histoplasmosis. 6. Valvular heart disease. 7. Obstructive sleep apnea, resolved after gastric bypass. 8. Hypertension, improved after gastric bypass. 9. Depression PAST SURGICAL HISTORY: 1. Gastric bypass surgery with multiple revisions. 2. Colonoscopy. 3. Appendectomy. 4. Tonsillectomy. 5. Bowel resection. 6. Carpal tunnel. 7. Bilateral knee replacements. 8. Spinal fusion SOCIAL HISTORY: Tobacco use: Remote history of smoking in college ETOH: Rare Illicit drug use: Denies Patient lives with: Lives alone FAMILY HISTORY: Patient's mother had breast cancer. Patient's father lived to age 96 and suffered from hypertension, COPD, coronary artery disease and history of bladder cancer. REVIEW OF SYSTEMS: Complete 10 point review systems is negative except as noted above PHYSICAL EXAMINATION: Patient is seen in the ER, sitting up on the stretcher. She moved easily from th e stretcher to the scale with contact guard only. She is alert and oriented x 3. HEENT is WNL. Neck is supple. Lungs are clear to auscultation. Heart regular rate and rhythm without murmur. Abdomen is obese, soft, non-tender to palpation with bowel sounds positive. Extremities with good ROM and strength equal bilaterally. . She has multiple well-healed scars on the bilateral lower extremities. 1+ lower extremity edema. Pedal pulses are positive. Skin is warm and dry with no obvious rash or lesion. Neuro: grossly intact. Psych: She is pleasant and cooperative. ASSESSMENT AND PLAN: 1. Bilateral pulmonary emboli, etiology unclear, with patient having recent acute illness and decreased activity. Will start the patient on Eliquis. Coagulopathy studies pending. Encourage good pulmonary toilet. Echocardiogram in the morning with possible cor pulmonale with elevated BNP. Oxygen available as needed. 2. Hypertension, essential, currently on no medications. She stated her high blood pressure had improved status post gastric bypass and is no longer on medications. Will monitor with routine vital signs. May need to add antihypertensives depending on trends. 3. Depression. Patient states she takes [place] Thyroid for depression. Will continue that and her home medication of Trentellix. Continue supportive care. 4. Hypernatremia with recent dehydration. Recheck labs in the morning. 5. Elevated LFTs secondary to nausea and vomiting. Labs appear to be improving. Will recheck in the morning. 6. Valvular heart disease. Echocardiogram in the morning. 7. DVT prophylaxis. Patient starting Eliquis. CODE STATUS: At status was discussed with the patient. He desires to be considered full code. She states her son, Aden, would act as her surrogate if she were unable to make her decisions. Patient is considered high risk for further deterioration including possible stroke or respiratory arrest. She is admitted for close observation and further evaluation and expected to remain at least one midnight. Vital Signs Vital Signs Date Time Temp Pulse Resp B/P (MAP) Pulse Ox O2 Delivery O2 Flow Rate FiO2 10/05/20 18:34 73 97 10/05/20 18:30 182/76 (111) 10/05/20 15:26 96.8 19 Laboratory Data Labs 24H Laboratory Tests 2 10/05/20 16:05: Immature Granulocyte % (Auto) 0.2, Neutrophils (%) (Auto) 35.3L, Lymphocytes (%) (Auto) 54.1H, Monocytes (%) (Auto) 8.2H, Eosinophils (%) (Auto) 1.8, Basophils (%) (Auto) 0.4, Neutrophils # (Auto) 2.0, Lymphocytes # (Auto) 3.1, Monocytes # (Auto) 0.5, Eosinophils # (Auto) 0.1, Basophils # (Auto) 0.0, Nucleated Red Blood Cells % (auto) 0.0, Anion Gap 9, Glomerular Filtration Rate > 60.0, Calcium Level 8.3L, Total Bilirubin 0.4, Direct Bilirubin 0.2, Aspartate Amino Transf (AST/SGOT) 42H, Alanine Aminotransferase (ALT/SGPT) 29, Alkaline Phosphatase 119H, Total Creatine Kinase 53, Creatine Kinase MB < 1.0, Creatine Kinase MB Relative Index 1.89, Troponin I < 0.02, AO-Yic-M-Type Natriuretic Peptide 317H, Total Protein 6.3L, Albumin 2.9L, Albumin/Globulin Ratio 0.9L, Lipase 88 10/05/20 18:37: Coronavirus (COVID-19)(PCR) NEGATIVE, Influenza Type A (RT-PCR) NEGATIVE, Influenza Type B (RT-PCR) NEGATIVE, Respiratory Syncytial Virus (PCR) NEGATIVE 10/05/20 18:57: Prothrombin Time 12.7, Prothromb Time International Ratio 0.93, Activated Part ial Thromboplast Time 27.3 CBC/BMP Laboratory Tests 10/05/20 16:05 Home Medications Scheduled Calcium Carbonate/Vitamin D3 (Caltrate 600 + D Soft Chew Tab) 1 Chw Chw, 2 CHW PO DAILY Ferrous Gluconate (Ferrous Gluconate) 324 Mg Tab, 324 MG PO TID Latanoprost (Xalatan) 0.005 % Fabby, 1 DROP OU QHS Multivit-Min/Iron/Folic/Vit K1 (Centrum Chewables Adults Tab) 1 Each Tab.chew, 1 CHW PO DAILY Ropinirole HCl (Ropinirole HCl) 0.5 Mg Tablet, 0.5 MG PO BID MORNING AND AFTERNOON Ropinirole HCl (Ropinirole HCl) 0.5 Mg Tablet, 1 MG PO QHS Thyroid,Pork (Video Production Coordinator Thyroid) 60 Mg Tablet, 60 MG PO DAILY Vortioxetine Hydrobromide (Trintellix) 20 Mg Tablet, 40 MG PO DAILY Scheduled PRN Fentanyl (Fentanyl) 62.5 Mcg/Hr Dis, 62.5 MCG TD Q3DP PRN for PAIN Hydromorphone HCl (Hydromorphone HCl) 2 Mg Tablet, 2 MG PO DAILY PRN for SEVERE PAIN (PS 8-10) Hydroxyzine Pamoate (Hydroxyzine Pamoate) 25 Mg Capsule, 50 MG PO QHS PRN for SLEEP Meclizine HCl (Meclizine HCl) 25 Mg Tablet, 25 MG PO BID PRN for DIZZINESS Prochlorperazine Maleate (Prochlorperazine Maleate) 10 Mg Tablet, 10 MG PO BID PRN for NAUSEA OR VOMITING Allergies Coded Allergies: Penicillins (Verified Allergy, Intermediate, hives, 05/08/19) A-FIB/CHADSVASC A-FIB History Current/History of A-Fib/PAF?: No KRISTY MONREAL Oct 05, 2020 20:45
[2020-10-05] MEDS: APIXABAN 5 MG TAB (ELIQUIS) PO SCH (20:55)
[2020-10-05 22:01] VITALS: BP 175/76
[2020-10-05] MEDS: FERROUS GLUCONATE 324 MG TAB PO SCH (23:34)
[2020-10-05] MEDS: rOPINIRole 1MG TAB PO SCH (23:34)
[2020-10-06] MEDS: LATANOPROST 0.005% OPHTH SOLN 2.5 ML OU SCH ×2 (00:23→20:20)
[2020-10-06 06:00] VITALS: BP 118/58
[2020-10-06 06:16] LABS: HEMATOCRIT 32.9 % (36.0-47.0); HEMOGLOBIN 9.6 g/dl (12.0-15.5); MEAN CORPUSCULAR HEMOGLOBIN 22.1 pg (27.0-33.0); MEAN CORPUSCULAR HGB CONC 29.2 g/dl (32.0-36.5); MEAN CORPUSCULAR VOLUME 75.6 fl (80.0-96.0); PLATELET COUNT, AUTOMATED 324 10^3/uL (150-450); RED BLOOD COUNT 4.35 10^6/uL (4.00-5.40)
[2020-10-06] MEDS: THYROID 30 MG TAB PO SCH (06:17)
[2020-10-06 06:47] LABS: ALBUMIN 2.5 GM/DL (3.2-5.2); ALT/SGPT 21 U/L (12-78); BILIRUBIN,TOTAL 0.5 MG/DL (0.2-1.0); BLOOD UREA NITROGEN 11 MG/DL (7-18); CALCIUM LEVEL 7.6 MG/DL (8.8-10.2); CARBON DIOXIDE LEVEL 26 MEQ/L (21-32); CHLORIDE LEVEL 113 MEQ/L (98-107); CREATININE FOR GFR 0.49 MG/DL (0.55-1.30); GLOMERULAR FILTRATION RATE > 60.0 (>39); GLUCOSE, FASTING 93 MG/DL (70-100); POTASSIUM SERUM 3.3 MEQ/L (3.5-5.1); SODIUM LEVEL 144 MEQ/L (136-145)
[2020-10-06] MEDS ORDERED: VORTIOXETINE PO SCH (09:00)
[2020-10-06] MEDS: APIXABAN 5 MG TAB (ELIQUIS) PO SCH ×2 (10:26→20:20)
[2020-10-06] MEDS: FERROUS GLUCONATE 324 MG TAB PO SCH ×3 (10:26→20:21)
[2020-10-06] MEDS: rOPINIRole 0.25 MG TAB(REQUIP) PO SCH ×2 (10:26→15:39)
[2020-10-06] MEDS: POTASSIUM CHLORIDE 10 MEQ SR TABLET PO SCH ×2 (10:27→20:20)
[2020-10-06 10:52] LABS: FERRITIN 16 NG/ML (8-252); FREE T4 0.95 NG/DL (0.76-1.46); IRON (FE) 23 UG/DL (50-170); PERCENT SATURATION 8.5 % (13.2-45.0); THYROID STIMULATING HORMONE 0.816 uIU/ML (0.358-3.740); TOTAL IRON BINDING CAPACITY 270 UG/DL (250-450)
--- NOTE | 2020-10-06 12:44 | IPN ---
PROGRESS NOTE DATE: 10/06/2020 Lola is seen in [facility]. She was admitted with abnormal EKG and was found to have bilateral pulmonary embolism. She is on Eliquis 10 mg twice a day for 7 days and 5 mg twice a day. I was hoping to send her home today but after rounds was informed that she had a bradycardic episode, heart rate of 35, so we are watching her for another day on telemetry. She had no syncope, chest pain, lightheadedness. She feels back to her baseline. She is chronically short of breath. She is no worse than usual today. PHYSICAL EXAMINATION: Afebrile. Vital signs stable. Current pulse 65. Alert, conversant. No distress. LUNGS: Clear. HEART: Regular rate and rhythm. ABDOMEN: Soft, nontender. No peripheral edema. LABORATORY DATA: CBC: Hemoglobin is 9.6, microcytic with an MCV of 75. Platelets are normal. Potassium 3.3. Electrolytes unremarkable otherwise. Renal function normal. IMPRESSION: 1. Bilateral pulmonary emboli. Continue Eliquis 10 mg twice a day for a week, then 5 mg twice a day for at least 6 months. Would consider long-term anticoagulant therapy, as she has a remote history of deep venous thrombosis (DVT). 2. Hypothyroidism. She is on [place] Thyroid. We will not change that while she is here. 3. Microcytic anemia. Hemoglobin was 12.8 on 09/18/2020. Now it is 9.6. We will check stool for occult blood. Work up for anemia with appropriate iron studies. Mean corpuscular volume (MCV) is elevated, so we will check B12 and folate as well. 4. Hypothyroidism. Continue her [place] Thyroid. 5. History of anxiety and depression. Continue her Trintellix. 6. History of chronic pain syndrome. She uses hydromorphone at home.
[2020-10-06 14:00] VITALS: BP 158/82
[2020-10-06] MEDS: rOPINIRole 1MG TAB PO SCH (20:20)
[2020-10-06 22:00] VITALS: BP 117/65
[2020-10-07 06:00] VITALS: BP 122/62
[2020-10-07] MEDS: THYROID 30 MG TAB PO SCH (06:15)
[2020-10-07 06:28] LABS: HEMATOCRIT 34.3 % (36.0-47.0); HEMOGLOBIN 10.1 g/dl (12.0-15.5); MEAN CORPUSCULAR HEMOGLOBIN 22.5 pg (27.0-33.0); MEAN CORPUSCULAR HGB CONC 29.4 g/dl (32.0-36.5); MEAN CORPUSCULAR VOLUME 76.4 fl (80.0-96.0); PLATELET COUNT, AUTOMATED 311 10^3/uL (150-450); RED BLOOD COUNT 4.49 10^6/uL (4.00-5.40); WHITE BLOOD COUNT 4.7 10^3/uL (4.0-10.0)
[2020-10-07 06:50] LABS: BLOOD UREA NITROGEN 10 MG/DL (7-18); CARBON DIOXIDE LEVEL 26 MEQ/L (21-32); CHLORIDE LEVEL 113 MEQ/L (98-107); CREATININE FOR GFR 0.57 MG/DL (0.55-1.30); GLOMERULAR FILTRATION RATE > 60.0 (>39); GLUCOSE, FASTING 84 MG/DL (70-100); POTASSIUM SERUM 4.1 MEQ/L (3.5-5.1); SODIUM LEVEL 145 MEQ/L (136-145)
[2020-10-07] MEDS: rOPINIRole 0.25 MG TAB(REQUIP) PO SCH (09:11)
[2020-10-07] MEDS: POTASSIUM CHLORIDE 10 MEQ SR TABLET PO SCH (09:11)
[2020-10-07] MEDS: APIXABAN 5 MG TAB (ELIQUIS) PO SCH (09:11)
[2020-10-07] MEDS: FERROUS GLUCONATE 324 MG TAB PO SCH (09:11)
[2020-10-07] MEDS ORDERED: ELIQ5TAB PO (10:01)
--- NOTE | 2020-10-07 10:14 | DSES ---
DISCHARGE SUMMARY DATE OF ADMISSION: 10/05/2020 DATE OF DISCHARGE: 10/07/2020 PREOPERATIVE DIAGNOSIS: Bilateral pulmonary emboli. SECONDARY DIAGNOSES: 1. Hypothyroidism. 2. Microcytic anemia - workup in progress. 3. History of anxiety and depression. 4. History of chronic pain syndrome. 5. Physiologic bradycardia. HISTORY: Lola Saldaña was admitted after coming to the ER for prolonged QT interval and in the course of the workup was found to have bilateral pulmonary emboli. HOSPITAL COURSE: The patient was admitted to a monitored bed and started on Eliquis 10 mg b.i.d. for seven days and then 5 mg b.i.d. for at least six months. She tolerated this well. No cough or shortness of breath. She is back to her baseline pulmonary status. She had some bradycardia with heart rate into the mid 50s and totally asymptomatic that occurred while asleep and occurred this morning; so I think it is physiologic and I think she is stable for discharge. DISCHARGE PHYSICAL EXAMINATION: GENERAL APPEARANCE: On the day of discharge, she is resting comfortably. She was alert and conversant. VITAL SIGNS: Stable. Pulse rate when I examined her was in the 70s. Blood pressure 122/62. LUNGS: Clear. HEART: Regular rhythm. ABDOMEN: Soft and nontender. EXTREMITIES: No peripheral edema. LABORATORY DATA: Hemoglobin 10.1 with an MCV of 76. Red cell distribution width of 21. Reticulocyte hemoglobin equivalent was 26. TIBC normal at 270. Ferritin normal at 16. B12 and folate pending. Free T4 and TSH normal. Electrolytes remained unremarkable. Creatinine 0.57. Thrombophilia workup is pending including anticardiolipin antibody status, protein C, protein S, antithrombin III, Factor V Leiden, lupus anticoagulant (she has a remote history of previous DVTs so consideration could be given to jail anticoagulation regardless of the results of these). DISCHARGE DISPOSITION: She is discharged home in improved and stable condition. Her pharmacy is closed today. [facility] is open and I called them with a prescription for her Eliquis 5 mg two tablets b.i.d. to get her through today and two tablets b.i.d. for five more days and that will complete a seven day course. She can pick up man the 5 mg b.i.d. dose from her regular pharmacy, which is [facility]. DISCHARGE ACTIVITY: As tolerated. DISCHARGE DIET: No added salt diet. DISCHARGE MEDICATIONS: She will continue her previous medicines 1. Calcium carbonate. 2. Fentanyl 62.5 mcg patch every three days. 3. Ferrous gluconate 324 mg b.i.d. 4. Hydromorphone 2 mg daily p.r.n. for severe pain. 5. Hydroxyzine 50 mg q. h.s. p.r.n. 6. Meclizine 25 mg b.i.d. 7. Multivitamin. 8. Phenergan as needed. 9. Requip 0.5 mg b.i.d. morning and afternoon. 10. Requip 1 mg at bedtime. 11. [place] Thyroid 60 mg daily. 12. Trintellix 40 mg daily. 13. The only new medication is Eliquis 10 mg b.i.d. for seven days then 5 mg b.i.d. probably indefinitely. There are still pending labs including parts of her anemia workup, as well as her thrombophilia workup that can be reviewed at her hospital follow-up appointment.
[2020-10-08 11:28] LABS: FOLATE 9.5 NG/ML; VITAMIN B12 LEVEL 186 PG/ML
--- NOTE | 2020-10-08 12:50 | ECHO ---
ECHOCARDIOGRAM DATE OF PROCEDURE: 10/06/2020 Age: 75 Gender: Female Height: 64 inches Weight: 226 pounds REFERRING PHYSICIAN: Stefanie Barreto NP INDICATION: Pulmonary emboli, elevated BNP. MEASUREMENTS: 2D Measurements: Aortic root 3.2 cm Proximal ascending aorta 3.5 cm Left atrium 3.5 cm Intraventricular septum 1.03 cm Posterior wall 1.17 cm Left ventricle diastole 4.4 cm Left ventricle systole 2.6 cm Inferior vena cava 1.6 cm Doppler Measurements: Aortic valve velocity 154 cm/s LVOT velocity 113 cm/s LVOT VTI 26.7 cm Mitral E velocity 75.7 cm/s Mitral A velocity 83.7 cm/s Mitral deceleration time 180 msec No tricuspid regurgitation No pulmonic regurgitation Pulmonary artery acceleration time 114 msec (normal) MITRAL ANNULAR TISSUE DOPPLER E prime septal 7.2 cm/s, E prime lateral 10.6 cm/s DESCRIPTION: Rhythm was mostly sinus bradycardia. Image quality was fair. No pericardial effusion. This was a 2D, M-mode, color flow Doppler, and pulsed wave Doppler examination including mitral annular tissue Doppler. CONCLUSIONS: 1. Normal left ventricle internal dimensions and wall thickness. Normal regional LV wall motion and wall thickening. Normal LV systolic function. LVEF 65% by visual estimate. Normal LV diastolic function for age. 2. Suggestive of normal pulmonary artery systolic pressure. Normal right ventricle size and systolic function. 3. Moderate aortic valve sclerosis of a 3-cuspid aortic valve. No aortic stenosis or regurgitation. 4. Otherwise normal appearing echocardiogram Doppler findings.
[2020-10-12] MEDS ORDERED: APIXABAN 5 MG TAB (ELIQUIS) PO SCH (21:00)
== END 2020-10-07 12:13 | disposition home or self-care (01) | DRG 176 ==
LOC: EDBD 15:12 → M ED 15:12 → M ED INP 15:13 → ENRESERVDT 20:57 → ENRESERVTM 20:57 → M MSPAV 22:01 → OBSVTOIN 10-06 15:52
PROVIDERS: ADMIT General Practice; ATTEND Family Medicine
DX: I26.99 Other pulmonary embolism without acute cor pulmonale (principal); E03.9 Hypothyroidism, unspecified; F41.9 Anxiety disorder, unspecified; F32.9 Major depressive disorder, single episode, unspecified; Z79.899 Other long term (current) drug therapy; Z96.653 Presence of artificial knee joint, bilateral; Z88.0 Allergy status to penicillin; G89.29 Other chronic pain

== ENCOUNTER → 2020-12-19 | Outpatient (CLI) | payer MEDICARE, MEDICAID ==
[~2020-12-19] MED LIST changes: +BRIN1TAB3 PO; +CENTCHW4 PO; +ELIQ5TAB PO; +HYDR1CAP25 PO; +HYDR2TAB2 PO; +MECL-86 PO; +NP T60TA PO; +PROC10TA4 PO; +ROPI0.5T3 PO
[2020-12-19 17:36] LABS: HEMATOCRIT 40.3 % (36.0-47.0); MEAN CORPUSCULAR HEMOGLOBIN 24.5 pg (27.0-33.0); MEAN CORPUSCULAR HGB CONC 29.8 g/dl (32.0-36.5); MEAN CORPUSCULAR VOLUME 82.4 fl (80.0-96.0); PLATELET COUNT, AUTOMATED 343 10^3/uL (150-450); RED BLOOD COUNT 4.89 10^6/uL (4.00-5.40); WHITE BLOOD COUNT 5.7 10^3/uL (4.0-10.0)
[2020-12-19 17:48] LABS: ALBUMIN 3.5 GM/DL (3.2-5.2); ALT/SGPT 17 U/L (12-78); BILIRUBIN,TOTAL 0.6 MG/DL (0.2-1.0); BLOOD UREA NITROGEN 13 MG/DL (7-18); CALCIUM LEVEL 8.8 MG/DL (8.8-10.2); CARBON DIOXIDE LEVEL 27 MEQ/L (21-32); CHLORIDE LEVEL 111 MEQ/L (98-107); CREATININE FOR GFR 0.73 MG/DL (0.55-1.30); FERRITIN 8 NG/ML (8-252); GLOMERULAR FILTRATION RATE > 60.0 (>39); GLUCOSE, FASTING 80 MG/DL (70-100); IRON (FE) 34 UG/DL (50-170); PERCENT SATURATION 7.5 % (13.2-45.0); POTASSIUM SERUM 4.1 MEQ/L (3.5-5.1); SODIUM LEVEL 143 MEQ/L (136-145); TOTAL IRON BINDING CAPACITY 455 UG/DL (250-450); TOTAL PROTEIN 6.7 GM/DL (6.4-8.2)
[2020-12-19 18:10] LABS: HEMOGLOBIN A1c 5.5 %
== END ==
LOC: M PLALAB 15:11
PROVIDERS: ATTEND Nurse Practitioner Adult Health
DX: I26.99 Other pulmonary embolism without acute cor pulmonale (principal); Z79.01 Long term (current) use of anticoagulants; Z79.899 Other long term (current) drug therapy

== ENCOUNTER → 2021-01-30 | Outpatient (REF) | payer MEDICARE, MEDICAID ==
[~2021-01-30] MED LIST changes: +FURO40TA2 PO; +[UNRECOGNIZED DRUG - CODE] SL; +[UNRECOGNIZED DRUG - CODE] SL
== END ==
LOC: M SFHCPLAZ 17:12
PROVIDERS: ATTEND Physician Assistant
DX: R50.9 Fever, unspecified (principal)
CPT/HCPCS: 87426; 93005; U0003

== ENCOUNTER → 2021-02-01 | Outpatient (CLI) | payer MEDICARE, MEDICAID ==
[~2021-02-01] MED LIST changes: -FURO40TA2 PO; -[UNRECOGNIZED DRUG - CODE] SL; -[UNRECOGNIZED DRUG - CODE] SL
[2021-02-01 13:28] LABS: BASO % 0.4 % (0.0-1.0); EOS # 0.1 10^3/uL (0.0-0.5); EOS % 2.2 % (0.0-3.0); HEMATOCRIT 34.9 % (36.0-47.0); HEMOGLOBIN 10.7 g/dl (12.0-15.5); LYMPH # 1.5 10^3/uL (1.5-5.0); LYMPH % 28.8 % (24.0-44.0); MEAN CORPUSCULAR HEMOGLOBIN 25.9 pg (27.0-33.0); MEAN CORPUSCULAR HGB CONC 30.7 g/dl (32.0-36.5); MEAN CORPUSCULAR VOLUME 84.5 fl (80.0-96.0); MONO # 0.6 10^3/uL (0.0-0.8); MONO % 11.3 % (2.0-8.0); NEUTROPHILS # 2.9 10^3/uL (1.5-8.5); NEUTROPHILS % 57.1 % (36.0-66.0); PLATELET COUNT, AUTOMATED 289 10^3/uL (150-450); RED BLOOD COUNT 4.13 10^6/uL (4.00-5.40)
[2021-02-01 14:32] LABS: ALBUMIN 2.9 GM/DL (3.2-5.2); ALT/SGPT 15 U/L (12-78); BILIRUBIN,TOTAL 0.8 MG/DL (0.2-1.0); BLOOD UREA NITROGEN 11 MG/DL (7-18); CALCIUM LEVEL 8.5 MG/DL (8.8-10.2); CARBON DIOXIDE LEVEL 30 MEQ/L (21-32); CHLORIDE LEVEL 112 MEQ/L (98-107); GLOMERULAR FILTRATION RATE > 60.0 (>39); GLUCOSE, FASTING 99 MG/DL (70-100); IRON (FE) 20 UG/DL (50-170); MAGNESIUM LEVEL 1.9 MG/DL (1.8-2.4); NT-PRO BNP 730 PG/ML (<125); PERCENT SATURATION 5.5 % (13.2-45.0); POTASSIUM SERUM 3.8 MEQ/L (3.5-5.1); SODIUM LEVEL 146 MEQ/L (136-145); TOTAL IRON BINDING CAPACITY 366 UG/DL (250-450); TOTAL PROTEIN 5.9 GM/DL (6.4-8.2)
== END ==
LOC: M PLALAB 10:14
PROVIDERS: ATTEND Physician Assistant
DX: R60.0 Localized edema (principal); R06.02 Shortness of breath; R26.89 Other abnormalities of gait and mobility; D50.8 Other iron deficiency anemias

== ENCOUNTER → 2021-02-06 | Outpatient (CLI) | payer MEDICARE, MEDICAID ==
[~2021-02-06] MED LIST changes: +FURO40TA2 PO; +[UNRECOGNIZED DRUG - CODE] SL; +[UNRECOGNIZED DRUG - CODE] SL
[2021-02-06 16:04] LABS: ALBUMIN 3.7 GM/DL (3.2-5.2); BLOOD UREA NITROGEN 18 MG/DL (7-18); CARBON DIOXIDE LEVEL 28 MEQ/L (21-32); CHLORIDE LEVEL 102 MEQ/L (98-107); CREATININE FOR GFR 0.96 MG/DL (0.55-1.30); GLOMERULAR FILTRATION RATE > 60.0 (>39); GLUCOSE, FASTING 104 MG/DL (70-100); MAGNESIUM LEVEL 2.1 MG/DL (1.8-2.4); NT-PRO BNP 96 PG/ML (<125); PHOSPHORUS LEVEL 3.9 MG/DL (2.5-4.9); POTASSIUM SERUM 4.1 MEQ/L (3.5-5.1); SODIUM LEVEL 137 MEQ/L (136-145); TROPONIN I < 0.02 NG/ML (< 0.10)
== END ==
LOC: M PLALAB 14:13
PROVIDERS: ATTEND Physician Assistant
DX: I50.9 Heart failure, unspecified (principal); Z23 Encounter for immunization
CPT/HCPCS: 36415; 80069; 83735; 83880; 84484; 90471; 90682; G0463

== ENCOUNTER → 2021-02-13 | Outpatient (CLI) | payer MEDICARE, MEDICAID ==
[~2021-02-13] MED LIST changes: -FURO40TA2 PO; -[UNRECOGNIZED DRUG - CODE] SL; -[UNRECOGNIZED DRUG - CODE] SL
[2021-02-13 15:53] LABS: BLOOD UREA NITROGEN 14 MG/DL (7-18); CREATININE FOR GFR 0.88 MG/DL (0.55-1.30); GLOMERULAR FILTRATION RATE > 60.0 (>39); GLUCOSE, FASTING 114 MG/DL (70-100)
[2021-02-13 15:54] LABS: CARBON DIOXIDE LEVEL 30 MEQ/L (21-32); CHLORIDE LEVEL 106 MEQ/L (98-107); NT-PRO BNP 158 PG/ML (<125); POTASSIUM SERUM 3.9 MEQ/L (3.5-5.1); SODIUM LEVEL 142 MEQ/L (136-145)
== END ==
LOC: M PLALAB 13:06
PROVIDERS: ATTEND Internal Medicine Cardiovascular Disease
DX: I50.9 Heart failure, unspecified (principal)

== ENCOUNTER 2021-02-20 12:45 | Outpatient (CLI) | payer MEDICARE, MEDICAID ==
[~2021-02-20] VITALS: Ht 157.5 cm; Wt 106.0 kg
[~2021-02-20 12:45] MED LIST changes: +IRON SUCROSE 25 MG in NS 25 ML IV ONE; +IRON SUCROSE 250 MG in NS 250 ML IV ONE
[2021-02-20] MEDS ORDERED: [UNRECOGNIZED DRUG - CODE] SL (13:36)
[2021-02-20] MEDS ORDERED: FURO40TA2 PO (13:36)
[2021-02-20] MEDS ORDERED: [UNRECOGNIZED DRUG - CODE] SL (13:36)
[2021-02-20 13:50] VITALS: BP 138/62
[2021-02-20 15:00] VITALS: BP 111/56
[2021-02-20 15:44] VITALS: BP 112/59
== END 2021-02-20 15:45 | disposition home or self-care (01) ==
LOC: M INFU 12:45
PROVIDERS: ATTEND Physician Assistant
DX: D50.9 Iron deficiency anemia, unspecified (principal); Z88.0 Allergy status to penicillin
CPT/HCPCS: 96365; 96366; J1756

== ENCOUNTER 2021-02-27 11:25 | Outpatient (CLI) | payer MEDICARE, MEDICAID ==
[~2021-02-27] VITALS: Ht 160 cm; Wt 106.0 kg
[~2021-02-27 11:25] MED LIST changes: +FURO40TA2 PO; -IRON SUCROSE 25 MG in NS 25 ML IV ONE; -IRON SUCROSE 250 MG in NS 250 ML IV ONE; -PROC10TA4 PO; +PROC10TA5 PO; -TOBR0.3S; +TOBR0.3S10; +[UNRECOGNIZED DRUG - CODE] SL; +[UNRECOGNIZED DRUG - CODE] SL
[2021-02-27 11:30] VITALS: BP 117/72
[2021-02-27] MEDS ORDERED: IRON SUCROSE 300 MG in NS 250 ML OVER 90 MIN. IV ONE (11:30)
[2021-02-27] MEDS ORDERED: IRON SUCROSE 250 MG in NS 250 ML IV ONE (12:00)
[2021-02-27 13:00] VITALS: BP 121/72
[2021-02-27 14:44] VITALS: BP 158/68
== END 2021-02-27 14:45 | disposition home or self-care (01) ==
LOC: M INFU 11:25
PROVIDERS: ATTEND Physician Assistant
DX: D50.9 Iron deficiency anemia, unspecified (principal); Z88.0 Allergy status to penicillin
CPT/HCPCS: 96365; 96366; J1756

== ENCOUNTER 2021-03-12 10:06 | Outpatient (CLI) | payer MEDICARE, MEDICAID ==
[~2021-03-12] VITALS: Ht 160 cm; Wt 106.0 kg
[~2021-03-12 10:06] MED LIST changes: +ALBUTEROL SULFATE 2.5 MG/0.5 ML INH NEB SOLN INH PRN; +EPINEPHrine INJ 1 MG/ML 1ML AMP IM PRN; +IRON SUCROSE 250 MG in NS 250 ML IV ONE; +NS 1,000 ML IV ONE; +NS 1,000 ML IV SCH; +PROC10TA4 PO; -PROC10TA5 PO; +TOBR0.3S; -TOBR0.3S10; +diphenhydrAMINE 50MG/ML VIAL (J1200) IV PRN; +methylPREDNISolone 125MG 2ML VIAL IV PRN
[2021-03-12 10:32] VITALS: BP 142/75
[2021-03-12] MEDS ORDERED: IRON SUCROSE 250 MG in NS 250 ML IV ONE (11:00)
[2021-03-12 12:22] VITALS: BP 137/95
== END 2021-03-12 13:00 | disposition home or self-care (01) ==
LOC: M INFU 10:06
PROVIDERS: ATTEND Physician Assistant
DX: D50.9 Iron deficiency anemia, unspecified (principal); Z88.0 Allergy status to penicillin
CPT/HCPCS: 96365; J1756

== ENCOUNTER → 2021-04-10 | Outpatient (CLI) | payer MEDICARE ==
[~2021-04-10] MED LIST changes: -ALBUTEROL SULFATE 2.5 MG/0.5 ML INH NEB SOLN INH PRN; -EPINEPHrine INJ 1 MG/ML 1ML AMP IM PRN; -IRON SUCROSE 250 MG in NS 250 ML IV ONE; -NS 1,000 ML IV ONE; -NS 1,000 ML IV SCH; -PROC10TA4 PO; +PROC10TA5 PO; -diphenhydrAMINE 50MG/ML VIAL (J1200) IV PRN; -methylPREDNISolone 125MG 2ML VIAL IV PRN
[2021-04-10 15:35] LABS: HEMOGLOBIN 13.8 g/dl (12.0-15.5); MEAN CORPUSCULAR HGB CONC 31.4 g/dl (32.0-36.5); MEAN CORPUSCULAR VOLUME 89.2 fl (80.0-96.0); PLATELET COUNT, AUTOMATED 358 10^3/uL (150-450); RED BLOOD COUNT 4.93 10^6/uL (4.00-5.40)
[2021-04-10 16:23] LABS: ALBUMIN 3.5 GM/DL (3.2-5.2); ALT/SGPT 19 U/L (12-78); BILIRUBIN,TOTAL 0.8 MG/DL (0.2-1.0); BLOOD UREA NITROGEN 12 MG/DL (7-18); CALCIUM LEVEL 8.9 MG/DL (8.8-10.2); CARBON DIOXIDE LEVEL 28 MEQ/L (21-32); CHLORIDE LEVEL 110 MEQ/L (98-107); CREATININE FOR GFR 0.75 MG/DL (0.55-1.30); GLOMERULAR FILTRATION RATE > 60.0 (>39); GLUCOSE, FASTING 109 MG/DL (70-100); IRON (FE) 89 UG/DL (50-170); POTASSIUM SERUM 4.6 MEQ/L (3.5-5.1); SODIUM LEVEL 145 MEQ/L (136-145); THYROID STIMULATING HORMONE 0.614 uIU/ML (0.358-3.740); TOTAL IRON BINDING CAPACITY 287 UG/DL (250-450); TOTAL PROTEIN 6.4 GM/DL (6.4-8.2)
== END ==
LOC: M PLALAB 13:51
PROVIDERS: ATTEND Nurse Practitioner Adult Health
DX: I50.9 Heart failure, unspecified (principal); D50.8 Other iron deficiency anemias; E03.9 Hypothyroidism, unspecified

== ENCOUNTER → 2021-05-21 | Outpatient (REF) | payer MEDICARE, MEDICAID ==
[~2021-05-21] MED LIST changes: -TOBR0.3S; +TOBR0.3S10
[2021-05-21 18:08] LABS: APPEARANCE, URINE CLEAR (CLEAR); BACTERIA, URINE AUTO NEGATIVE (NEGATIVE); BILIRUBIN, URINE AUTO 2+ (NEGATIVE); BLOOD, URINE BLOOD NEGATIVE (NEGATIVE); COLOR, URINE AMBER (YELLOW); GLUCOSE, URINE (UA) AUTO 1+ mg/dL (NEGATIVE); KETONE, URINE AUTO TRACE mg/dL (NEGATIVE); LEUKOCYTE ESTERASE, URINE AUTO NEGATIVE (NEGATIVE); MUCUS, URINE LARGE (NEGATIVE); NITRITE, URINE AUTO NEGATIVE (NEGATIVE); PROTEIN, URINE AUTO 2+ mg/dL (NEGATIVE); RBC, URINE AUTO 2 /HPF (0-3); SPECIFIC GRAVITY URINE AUTO 1.031 (1.002-1.035); SQUAMOUS EPITHELIAL CELL UR AU 5 /HPF (0-6); WBC, URINE AUTO 6 /HPF (0-3)
== END ==
LOC: M SFHCPLAZ 16:58
PROVIDERS: ATTEND Physician Assistant
DX: R82.90 Unspecified abnormal findings in urine (principal); Z20.822 Contact with and (suspected) exposure to COVID-19

== ENCOUNTER → 2021-06-05 | Outpatient (CLI) | payer MEDICARE, MEDICAID ==
[2021-06-05 19:22] LABS: ALBUMIN 3.3 GM/DL (3.2-5.2); ALT/SGPT 24 U/L (12-78); BILIRUBIN,TOTAL 0.9 MG/DL (0.2-1.0); BLOOD UREA NITROGEN 15 MG/DL (7-18); CARBON DIOXIDE LEVEL 28 MEQ/L (21-32); CHLORIDE LEVEL 109 MEQ/L (98-107); CREATININE FOR GFR 0.88 MG/DL (0.55-1.30); FERRITIN 48 NG/ML (8-252); GLOMERULAR FILTRATION RATE > 60.0 (>39); GLUCOSE, FASTING 96 MG/DL (70-100); IRON (FE) 99 UG/DL (50-170); LIPASE 94 U/L (73-393); POTASSIUM SERUM 3.7 MEQ/L (3.5-5.1); SODIUM LEVEL 144 MEQ/L (136-145); TOTAL PROTEIN 6.3 GM/DL (6.4-8.2)
[2021-06-05 19:34] LABS: BASO % 0.2 % (0.0-1.0); EOS % 0.4 % (0.0-3.0); HEMATOCRIT 48.7 % (36.0-47.0); HEMOGLOBIN 16.1 g/dl (12.0-15.5); LYMPH # 1.9 10^3/uL (1.5-5.0); LYMPH % 22.7 % (24.0-44.0); MEAN CORPUSCULAR HEMOGLOBIN 29.9 pg (27.0-33.0); MEAN CORPUSCULAR HGB CONC 33.1 g/dl (32.0-36.5); MEAN CORPUSCULAR VOLUME 90.4 fl (80.0-96.0); MONO # 0.6 10^3/uL (0.0-0.8); MONO % 6.8 % (2.0-8.0); NEUTROPHILS # 5.7 10^3/uL (1.5-8.5); NEUTROPHILS % 69.5 % (36.0-66.0); PLATELET COUNT, AUTOMATED 269 10^3/uL (150-450); RED BLOOD COUNT 5.39 10^6/uL (4.00-5.40); WHITE BLOOD COUNT 8.2 10^3/uL (4.0-10.0)
== END ==
LOC: M PLALAB 15:06
PROVIDERS: ATTEND Physician Assistant
DX: K52.9 Noninfective gastroenteritis and colitis, unspecified (principal); R42 Dizziness and giddiness; D50.8 Other iron deficiency anemias

== ENCOUNTER → 2021-10-21 | Outpatient (CLI) | payer MEDICARE, MEDICAID ==
[~2021-10-21] MED LIST changes: -ACUV0.45; +KETO1DRO
[2021-10-21 17:21] LABS: HEMATOCRIT 43.7 % (36.0-47.0); HEMOGLOBIN 14.2 g/dl (12.0-15.5); MEAN CORPUSCULAR HEMOGLOBIN 31.6 pg (27.0-33.0); MEAN CORPUSCULAR HGB CONC 32.5 g/dl (32.0-36.5); MEAN CORPUSCULAR VOLUME 97.3 fl (80.0-96.0); PLATELET COUNT, AUTOMATED 245 10^3/uL (150-450); RED BLOOD COUNT 4.49 10^6/uL (4.00-5.40)
[2021-10-21 17:36] LABS: HEMOGLOBIN A1c 5.5 %
[2021-10-21 17:55] LABS: ALBUMIN 3.4 GM/DL (3.2-5.2); ALT/SGPT 17 U/L (12-78); BILIRUBIN,TOTAL 0.7 MG/DL (0.2-1.0); BLOOD UREA NITROGEN 12 MG/DL (7-18); CALCIUM LEVEL 9.1 MG/DL (8.8-10.2); CARBON DIOXIDE LEVEL 25 MEQ/L (21-32); CHLORIDE LEVEL 109 MEQ/L (98-107); CHOLESTEROL LEVEL 179 MG/DL (<200); CHOLESTEROL RISK RATIO 2.486 (<5); CREATININE FOR GFR 0.93 MG/DL (0.55-1.30); FERRITIN 20 NG/ML (8-252); GLOMERULAR FILTRATION RATE > 60.0 (>39); GLUCOSE, FASTING 88 MG/DL (70-100); HDL CHOLESTEROL 72 MG/DL (>40); IRON (FE) 106 UG/DL (50-170); LDL CHOLESTEROL 91 MG/DL (<100); NON-HDL-C 107 MG/DL; PERCENT SATURATION 27.7 % (13.2-45.0); POTASSIUM SERUM 4.5 MEQ/L (3.5-5.1); SODIUM LEVEL 141 MEQ/L (136-145); TOTAL IRON BINDING CAPACITY 382 UG/DL (250-450); TOTAL PROTEIN 6.5 GM/DL (6.4-8.2); TRIGLYCERIDES LEVEL 82 MG/DL (<150)
[2021-10-22 17:12] LABS: TOTAL 25(OH) VITAMIN D 17.6 NG/ML (30.0-100.0)
== END ==
LOC: M PLALAB 15:31
PROVIDERS: ATTEND Nurse Practitioner Adult Health
DX: D50.8 Other iron deficiency anemias (principal); R73.01 Impaired fasting glucose; Z13.220 Encounter for screening for lipoid disorders; Z79.899 Other long term (current) drug therapy

== ENCOUNTER → 2021-10-22 | Outpatient (REF) | payer MEDICARE, MEDICAID | LOC: M SFHCPLAZ 16:02 | PROVIDERS: ATTEND Nurse Practitioner Adult Health | DX: E55.9 Vitamin D deficiency, unspecified (principal) ==

== ENCOUNTER → 2022-01-20 | Outpatient (CLI) | payer MEDICARE, MEDICAID ==
[~2022-01-20] MED LIST changes: +ALEN70TA87 PO; -FOSA70TA PO
== END ==
LOC: M WHC 16:04
PROVIDERS: ATTEND Nurse Practitioner Adult Health
DX: Z12.31 Encounter for screening mammogram for malignant neoplasm of breast (principal)

== ENCOUNTER → 2022-04-18 | Outpatient (CLI) | payer MEDICARE, MEDICAID, OTHER ==
[2022-04-18 10:24] LABS: HEMATOCRIT 46.7 % (36.0-47.0); MEAN CORPUSCULAR HEMOGLOBIN 30.7 pg (27.0-33.0); MEAN CORPUSCULAR HGB CONC 32.1 g/dl (32.0-36.5); MEAN CORPUSCULAR VOLUME 95.7 fl (80.0-96.0); PLATELET COUNT, AUTOMATED 259 10^3/uL (150-450); RED BLOOD COUNT 4.88 10^6/uL (4.00-5.40); WHITE BLOOD COUNT 6.8 10^3/uL (4.0-10.0)
[2022-04-18 10:43] LABS: HEMOGLOBIN A1c 5.2 % (4.0-6.0)
[2022-04-18 10:51] LABS: MAGNESIUM LEVEL 1.8 MG/DL (1.8-2.4)
[2022-04-18 10:52] LABS: ALBUMIN 3.2 G/DL (3.2-5.2); ALKALINE PHOSPHATASE 102 U/L (46-116); ALT/SGPT 13 U/L (7.0-40); AST/SGOT 23 U/L (<34); BILIRUBIN,TOTAL 0.9 MG/DL (0.3-1.2); BLOOD UREA NITROGEN 14 MG/DL (9-23); CALCIUM LEVEL 8.9 MG/DL (8.3-10.6); CARBON DIOXIDE LEVEL 27 MMOL/L (20-31); CHLORIDE LEVEL 108 MMOL/L (98-107); CREATININE FOR GFR 0.78 MG/DL (0.55-1.30); GLOMERULAR FILTRATION RATE > 60.0 (>39); GLUCOSE, FASTING 87 MG/DL (74-106); IRON (FE) 121 UG/DL (50-170); PERCENT SATURATION 37.2 % (13.2-45.0); POTASSIUM SERUM 4.3 MMOL/L (3.5-5.1); SODIUM LEVEL 142 MMOL/L (136-145); TOTAL IRON BINDING CAPACITY 325 UG/DL (250-425); TOTAL PROTEIN 6.1 G/DL (5.7-8.2)
[2022-04-18 10:54] LABS: FERRITIN 18.1 NG/ML (7.3-270.7)
== END ==
LOC: M WUC 08:43
PROVIDERS: ATTEND Nurse Practitioner Adult Health
DX: D50.8 Other iron deficiency anemias (principal); R73.01 Impaired fasting glucose; I50.9 Heart failure, unspecified

== ENCOUNTER → 2022-06-03 | Outpatient (CLI) | payer MEDICARE, MEDICAID | LOC: M PLAIMG 13:02 | PROVIDERS: ATTEND Nurse Practitioner Family | DX: M25.552 Pain in left hip (principal); M25.551 Pain in right hip; M16.11 Unilateral primary osteoarthritis, right hip; M25.451 Effusion, right hip ==

== ENCOUNTER → 2022-09-18 | Outpatient (CLI) | payer MEDICARE, MEDICAID ==
[2022-09-18 15:26] LABS: BASO % 0.3 % (0.0-1.0); EOS # 0.1 10^3/uL (0.0-0.5); EOS % 1.2 % (0.0-3.0); HEMATOCRIT 42.6 % (36.0-47.0); HEMOGLOBIN 13.8 g/dl (12.0-15.5); LYMPH # 1.1 10^3/uL (1.5-5.0); LYMPH % 16.5 % (24.0-44.0); MEAN CORPUSCULAR HEMOGLOBIN 30.5 pg (27.0-33.0); MEAN CORPUSCULAR HGB CONC 32.4 g/dl (32.0-36.5); MEAN CORPUSCULAR VOLUME 94.2 fl (80.0-96.0); MONO # 0.6 10^3/uL (0.0-0.8); MONO % 8.4 % (2.0-8.0); NEUTROPHILS # 4.8 10^3/uL (1.5-8.5); NEUTROPHILS % 73.1 % (36.0-66.0); PLATELET COUNT, AUTOMATED 275 10^3/uL (150-450); RED BLOOD COUNT 4.52 10^6/uL (4.00-5.40); WHITE BLOOD COUNT 6.5 10^3/uL (4.0-10.0)
[2022-09-18 15:50] LABS: ALBUMIN 3.6 G/DL (3.2-5.2)
[2022-09-18 15:59] LABS: FERRITIN 27.8 NG/ML (7.3-270.7)
== END ==
LOC: M PLALAB 13:31
PROVIDERS: ATTEND Orthopaedic Surgery
DX: Z01.818 Encounter for other preprocedural examination (principal); M16.9 Osteoarthritis of hip, unspecified; M25.551 Pain in right hip

== ENCOUNTER 2022-10-21 14:56 | Inpatient (IN) | payer MEDICARE, MEDICAID ==
[~2022-10-21] VITALS: Ht 160 cm; Wt 96.0 kg
[~2022-10-21 14:56] MED LIST changes: -ROPI0.253 PO; -ROPI0.5T3 PO; +ROPI0.5T33 PO; +ROPI5TAB19 PO
[2022-10-21] MEDS ORDERED: MORPHINE 10 MG/ML 1ML VIAL IM ONE (17:05)
[2022-10-21] MEDS ORDERED: ONDANSETRON 4MG ORAL DISINTEGRATING TAB PO ONE (17:05)
[2022-10-21] MEDS ORDERED: NS 1,000 ML IV ONE (19:30)
[2022-10-21 21:24] LABS: BASO % 0.2 % (0.0-1.0); HEMATOCRIT 40.8 % (36.0-47.0); HEMOGLOBIN 13.4 g/dl (12.0-15.5); LYMPH % 7.9 % (24.0-44.0); MEAN CORPUSCULAR HEMOGLOBIN 30.8 pg (27.0-33.0); MEAN CORPUSCULAR HGB CONC 32.8 g/dl (32.0-36.5); MEAN CORPUSCULAR VOLUME 93.8 fl (80.0-96.0); MONO # 0.8 10^3/uL (0.0-0.8); MONO % 6.6 % (2.0-8.0); NEUTROPHILS # 10.7 10^3/uL (1.5-8.5); NEUTROPHILS % 84.9 % (36.0-66.0); PLATELET COUNT, AUTOMATED 277 10^3/uL (150-450); RED BLOOD COUNT 4.35 10^6/uL (4.00-5.40); WHITE BLOOD COUNT 12.6 10^3/uL (4.0-10.0)
[2022-10-21] MEDS ORDERED: ONDANSETRON 4MG 2ML VIAL IV PRN (21:35)
[2022-10-21] MEDS ORDERED: ACETAMINOPHEN TAB 650MG DOSE (2X325MG) PO PRN (21:35)
[2022-10-21] MEDS ORDERED: DOCUSATE SODIUM 100MG CAPSULE PO PRN (21:35)
[2022-10-21 21:44] LABS: ALBUMIN 3.4 G/DL (3.2-5.2); ALKALINE PHOSPHATASE 93 U/L (46-116); ALT/SGPT 10 U/L (7.0-40); AST/SGOT 21 U/L (<34); BLOOD UREA NITROGEN 11 MG/DL (9-23); CALCIUM LEVEL 8.4 MG/DL (8.3-10.6); CARBON DIOXIDE LEVEL 23 MMOL/L (20-31); CHLORIDE LEVEL 109 MMOL/L (98-107); CREATININE FOR GFR 0.73 MG/DL (0.55-1.30); GLOMERULAR FILTRATION RATE > 60.0 (>39); GLUCOSE, FASTING 138 MG/DL (74-106); POTASSIUM SERUM 4.6 MMOL/L (3.5-5.1); SODIUM LEVEL 142 MMOL/L (136-145); TOTAL PROTEIN 5.9 G/DL (5.7-8.2)
[2022-10-21] MEDS ORDERED: FARX1TAB3 PO (22:08)
[2022-10-21] MEDS ORDERED: ELIQ5TAB PO (22:08)
[2022-10-21] MEDS ORDERED: VITMTA PO (22:08)
[2022-10-21] MEDS ORDERED: FURO20TA2 PO (22:08)
[2022-10-21] MEDS ORDERED: HOME MED LIST COMPLETE! XX SCH (22:10)
[2022-10-21] MEDS: HYDROMORPHONE HCL 0.5 MG/ 0.5 ML SYRINGE IV PRN (22:51)
[2022-10-21 23:27] VITALS: BP 151/87; TEMP 97.7; O2SAT 96
[2022-10-21] MEDS ORDERED: rOPINIRole 1MG TAB PO PRN (23:45)
[2022-10-21] MEDS ORDERED: LR 1,000 ML IV SCH (23:55)
[2022-10-22] MEDS: LATANOPROST 0.005% OPHTH SOLN 2.5 ML OU SCH ×2 (02:18→21:00)
[2022-10-22 02:21] VITALS: BP 113/65
[2022-10-22] MEDS: HYDROMORPHONE HCL 0.5 MG/ 0.5 ML SYRINGE IV PRN ×7 (02:35→23:25)
[2022-10-22] MEDS ORDERED: NORCO, ANEXSIA 5/325MG TABLET (HYDROcodone/ACETAMINOPHEN) PO PRN (05:50)
[2022-10-22 06:23] LABS: MEAN CORPUSCULAR HEMOGLOBIN 31.1 pg (27.0-33.0); MEAN CORPUSCULAR HGB CONC 32.4 g/dl (32.0-36.5); MEAN CORPUSCULAR VOLUME 95.9 fl (80.0-96.0); PLATELET COUNT, AUTOMATED 254 10^3/uL (150-450); RED BLOOD COUNT 3.86 10^6/uL (4.00-5.40); WHITE BLOOD COUNT 10.1 10^3/uL (4.0-10.0)
[2022-10-22 06:43] LABS: ALBUMIN 2.9 G/DL (3.2-5.2); ALKALINE PHOSPHATASE 83 U/L (46-116); ALT/SGPT < 9 U/L (7.0-40); AST/SGOT 13 U/L (<34); BILIRUBIN,TOTAL 1.5 MG/DL (0.3-1.2); BLOOD UREA NITROGEN 13 MG/DL (9-23); CALCIUM LEVEL 8.2 MG/DL (8.3-10.6); CARBON DIOXIDE LEVEL 27 MMOL/L (20-31); CHLORIDE LEVEL 108 MMOL/L (98-107); GLOMERULAR FILTRATION RATE > 60.0 (>39); GLUCOSE, FASTING 96 MG/DL (74-106); INR 1.06; MAGNESIUM LEVEL 1.7 MG/DL (1.8-2.4); PARTIAL THROMBOPLASTIN TIME 25.5 SECONDS (24.8-34.2); POTASSIUM SERUM 3.9 MMOL/L (3.5-5.1); SODIUM LEVEL 140 MMOL/L (136-145); TOTAL PROTEIN 5.2 G/DL (5.7-8.2)
[2022-10-22 06:47] LABS: HEMOGLOBIN A1c 5.3 % (4.0-6.0)
[2022-10-22] MEDS: MULTIVITAMINS/MINERALS THERAP 1 TAB PO SCH (08:39)
[2022-10-22 14:00] VITALS: BP 108/50; TEMP 98.2; O2SAT 98
[2022-10-22] MEDS: ENOXAPARIN 100MG/1ML SYRINGE (J1650 PER 10MG) SC SCH (20:25)
[2022-10-22 20:31] VITALS: BP 114/76; O2SAT 98
[2022-10-22 20:55] VITALS: BP 108/53; TEMP 98.4; O2SAT 97
[2022-10-23] MEDS: HYDROMORPHONE HCL 0.5 MG/ 0.5 ML SYRINGE IV PRN ×4 (05:58→22:08)
[2022-10-23 06:00] VITALS: BP 112/74
[2022-10-23 06:03] VITALS: BP 104/71; TEMP 98.2; O2SAT 97
[2022-10-23 06:28] LABS: HEMATOCRIT 33.6 % (36.0-47.0); MEAN CORPUSCULAR HEMOGLOBIN 31.1 pg (27.0-33.0); MEAN CORPUSCULAR HGB CONC 32.7 g/dl (32.0-36.5); MEAN CORPUSCULAR VOLUME 94.9 fl (80.0-96.0); PLATELET COUNT, AUTOMATED 202 10^3/uL (150-450); RED BLOOD COUNT 3.54 10^6/uL (4.00-5.40); WHITE BLOOD COUNT 9.7 10^3/uL (4.0-10.0)
[2022-10-23 07:07] LABS: BLOOD UREA NITROGEN 13 MG/DL (9-23); CARBON DIOXIDE LEVEL 27 MMOL/L (20-31); CHLORIDE LEVEL 106 MMOL/L (98-107); CREATININE FOR GFR 0.75 MG/DL (0.55-1.30); GLOMERULAR FILTRATION RATE > 60.0 (>39); GLUCOSE, FASTING 104 MG/DL (74-106); MAGNESIUM LEVEL 1.6 MG/DL (1.8-2.4); PHOSPHORUS LEVEL 3.4 MG/DL (2.4-5.1); POTASSIUM SERUM 4.2 MMOL/L (3.5-5.1); SODIUM LEVEL 138 MMOL/L (136-145)
[2022-10-23] MEDS: MULTIVITAMINS/MINERALS THERAP 1 TAB PO SCH (08:27)
[2022-10-23] MEDS: ENOXAPARIN 100MG/1ML SYRINGE (J1650 PER 10MG) SC SCH (08:30)
[2022-10-23] MEDS ORDERED: MAGNESIUM OXIDE 400MG TAB (MAG-OX) PO ONE (09:15)
[2022-10-23 14:00] VITALS: BP 116/60; TEMP 97.5; O2SAT 95
[2022-10-23] MEDS: FUROSEMIDE 20 MG TAB PO SCH (14:54)
[2022-10-23] MEDS: DAPAGLIFLOZIN PROPANEDIOL 10MG TABLET (FARXIGA) PO SCH (14:54)
[2022-10-23 18:05] VITALS: BP 120/66
[2022-10-23] MEDS: LATANOPROST 0.005% OPHTH SOLN 2.5 ML OU SCH (22:08)
[2022-10-24] VITALS (8 sets, daily range): BP systolic 110–143; BP diastolic 51–97; TEMP 97.3–98.1; O2SAT 92–97
[2022-10-24] MEDS ORDERED: SUGAMMADEX SODIUM 500 MG/5 ML VIAL (BRIDION) As Ordered ONE (07:26)
[2022-10-24] MEDS ORDERED: propofoL 200 MG/20 ML VIAL As Ordered ONE (07:26)
[2022-10-24] MEDS ORDERED: ONDANSETRON 4MG 2ML VIAL As Ordered ONE (07:26)
[2022-10-24] MEDS ORDERED: ROCURONIUM BROMIDE 50MG/5ML VIAL As Ordered ONE ×2 (07:26→08:55)
[2022-10-24] MEDS ORDERED: fentaNYL 100 MCG/2 ML INJECTION As Ordered ONE ×2 (07:28→08:56)
[2022-10-24] MEDS ORDERED: LIDOCAINE 2% 100MG/5ML SDV (FOR ANES.) As Ordered ONE (07:29)
[2022-10-24] MEDS ORDERED: BACITRACIN OINTMENT 30GM TUBE As Ordered ONE (07:42)
[2022-10-24 07:52] LABS: HEMATOCRIT 32.9 % (36.0-47.0); MEAN CORPUSCULAR HEMOGLOBIN 31.4 pg (27.0-33.0); MEAN CORPUSCULAR HGB CONC 33.4 g/dl (32.0-36.5); PLATELET COUNT, AUTOMATED 206 10^3/uL (150-450); WHITE BLOOD COUNT 8.5 10^3/uL (4.0-10.0)
[2022-10-24] MEDS ORDERED: ceFAZolin 2 GM/D5W 50 ML IV BAG As Ordered ONE (08:01)
[2022-10-24 08:21] LABS: BLOOD UREA NITROGEN 13 MG/DL (9-23); CALCIUM LEVEL 7.8 MG/DL (8.3-10.6); CARBON DIOXIDE LEVEL 28 MMOL/L (20-31); CHLORIDE LEVEL 105 MMOL/L (98-107); GLOMERULAR FILTRATION RATE > 60.0 (>39); GLUCOSE, FASTING 106 MG/DL (74-106); MAGNESIUM LEVEL 1.8 MG/DL (1.8-2.4); POTASSIUM SERUM 3.8 MMOL/L (3.5-5.1); SODIUM LEVEL 141 MMOL/L (136-145)
[2022-10-24] MEDS ORDERED: TRANEXAMIC ACID 100 MG/ML 10ML VIAL As Ordered ONE (08:47)
[2022-10-24] MEDS: MULTIVITAMINS/MINERALS THERAP 1 TAB PO SCH (09:00)
[2022-10-24] MEDS ORDERED: oxyCODONE 5MG TAB PO PRN (10:40)
[2022-10-24] MEDS ORDERED: ONDANSETRON 4MG 2ML VIAL IV PRN (10:40)
[2022-10-24] MEDS ORDERED: fentaNYL 100 MCG/2 ML INJECTION IV PRN (10:40)
[2022-10-24] MEDS ORDERED: LR 1,000 ML IV SCH (10:40)
[2022-10-24] MEDS ORDERED: HYDROmorphone HCL 2MG/ML 1ML VIAL As Ordered ONE (10:46)
[2022-10-24] MEDS: HYDROMORPHONE HCL 0.5 MG/ 0.5 ML SYRINGE IV PRN ×5 (11:48→20:37)
[2022-10-24] MEDS ORDERED: ENOXAPARIN 40MG/0.4ML SYRINGE (J1650 PER 10MG) SC SCH (13:20)
[2022-10-24] MEDS: FUROSEMIDE 20 MG TAB PO SCH (14:02)
[2022-10-24] MEDS: DAPAGLIFLOZIN PROPANEDIOL 10MG TABLET (FARXIGA) PO SCH (14:02)
[2022-10-24] MEDS: ceFAZolin SOD 1 GM in D5W MINI-BAG PLUS 50 ML IV SCH (16:36)
[2022-10-24] MEDS: LATANOPROST 0.005% OPHTH SOLN 2.5 ML OU SCH (20:36)
[2022-10-25] MEDS: ceFAZolin SOD 1 GM in D5W MINI-BAG PLUS 50 ML IV SCH ×2 (00:25→08:57)
[2022-10-25] MEDS: HYDROMORPHONE HCL 0.5 MG/ 0.5 ML SYRINGE IV PRN ×4 (00:26→19:55)
[2022-10-25 02:00] VITALS: BP 108/69; TEMP 98.2; O2SAT 92
[2022-10-25 06:00] VITALS: BP 109/66; TEMP 98.1; O2SAT 92
[2022-10-25 06:20] LABS: HEMATOCRIT 31.2 % (36.0-47.0); HEMOGLOBIN 10.7 g/dl (12.0-15.5); MEAN CORPUSCULAR HEMOGLOBIN 31.3 pg (27.0-33.0); MEAN CORPUSCULAR HGB CONC 34.3 g/dl (32.0-36.5); MEAN CORPUSCULAR VOLUME 91.2 fl (80.0-96.0); PLATELET COUNT, AUTOMATED 240 10^3/uL (150-450); RED BLOOD COUNT 3.42 10^6/uL (4.00-5.40); WHITE BLOOD COUNT 17.5 10^3/uL (4.0-10.0)
[2022-10-25 06:53] LABS: BLOOD UREA NITROGEN 16 MG/DL (9-23); CALCIUM LEVEL 7.8 MG/DL (8.3-10.6); CARBON DIOXIDE LEVEL 26 MMOL/L (20-31); CHLORIDE LEVEL 103 MMOL/L (98-107); CREATININE FOR GFR 0.85 MG/DL (0.55-1.30); GLOMERULAR FILTRATION RATE > 60.0 (>39); GLUCOSE, FASTING 137 MG/DL (74-106); MAGNESIUM LEVEL 1.8 MG/DL (1.8-2.4); PHOSPHORUS LEVEL 3.4 MG/DL (2.4-5.1); POTASSIUM SERUM 4.1 MMOL/L (3.5-5.1); SODIUM LEVEL 139 MMOL/L (136-145)
[2022-10-25] MEDS: DAPAGLIFLOZIN PROPANEDIOL 10MG TABLET (FARXIGA) PO SCH (08:55)
[2022-10-25] MEDS: FUROSEMIDE 20 MG TAB PO SCH (08:56)
[2022-10-25] MEDS: MULTIVITAMINS/MINERALS THERAP 1 TAB PO SCH (08:57)
[2022-10-25] MEDS ORDERED: ENOXAPARIN 40MG/0.4ML SYRINGE (J1650 PER 10MG) SC SCH (09:00)
[2022-10-25 14:00] VITALS: BP 130/61; TEMP 98.2; O2SAT 97
[2022-10-25] MEDS: LATANOPROST 0.005% OPHTH SOLN 2.5 ML OU SCH (19:54)
[2022-10-25 21:00] VITALS: BP 110/64; TEMP 98.1; O2SAT 95
[2022-10-26] MEDS: HYDROMORPHONE HCL 0.5 MG/ 0.5 ML SYRINGE IV PRN ×4 (00:28→21:30)
[2022-10-26 06:00] VITALS: BP 118/60; TEMP 98.2; O2SAT 93
[2022-10-26 06:20] LABS: HEMOGLOBIN 9.5 g/dl (12.0-15.5); MEAN CORPUSCULAR HEMOGLOBIN 30.4 pg (27.0-33.0); MEAN CORPUSCULAR HGB CONC 32.8 g/dl (32.0-36.5); MEAN CORPUSCULAR VOLUME 92.7 fl (80.0-96.0); PLATELET COUNT, AUTOMATED 246 10^3/uL (150-450); RED BLOOD COUNT 3.13 10^6/uL (4.00-5.40); WHITE BLOOD COUNT 10.2 10^3/uL (4.0-10.0)
[2022-10-26 06:29] LABS: BLOOD UREA NITROGEN 15 MG/DL (9-23); CALCIUM LEVEL 7.5 MG/DL (8.3-10.6); CARBON DIOXIDE LEVEL 28 MMOL/L (20-31); CHLORIDE LEVEL 105 MMOL/L (98-107); GLOMERULAR FILTRATION RATE > 60.0 (>39); GLUCOSE, FASTING 104 MG/DL (74-106); POTASSIUM SERUM 3.7 MMOL/L (3.5-5.1); SODIUM LEVEL 141 MMOL/L (136-145)
[2022-10-26] MEDS: MULTIVITAMINS/MINERALS THERAP 1 TAB PO SCH (09:35)
[2022-10-26] MEDS: DAPAGLIFLOZIN PROPANEDIOL 10MG TABLET (FARXIGA) PO SCH (09:35)
[2022-10-26] MEDS: FUROSEMIDE 20 MG TAB PO SCH (09:36)
[2022-10-26] MEDS: APIXABAN 5 MG TAB (ELIQUIS) PO SCH ×2 (09:44→20:02)
[2022-10-26 14:00] VITALS: BP 121/66; TEMP 98.2; O2SAT 96
[2022-10-26] MEDS: LATANOPROST 0.005% OPHTH SOLN 2.5 ML OU SCH (20:03)
[2022-10-26 21:17] VITALS: BP 122/62; TEMP 98.2; O2SAT 95
[2022-10-27 05:57] LABS: HEMATOCRIT 30.2 % (36.0-47.0); HEMOGLOBIN 9.9 g/dl (12.0-15.5); MEAN CORPUSCULAR HGB CONC 32.8 g/dl (32.0-36.5); MEAN CORPUSCULAR VOLUME 94.7 fl (80.0-96.0); PLATELET COUNT, AUTOMATED 275 10^3/uL (150-450); RED BLOOD COUNT 3.19 10^6/uL (4.00-5.40); WHITE BLOOD COUNT 7.6 10^3/uL (4.0-10.0)
[2022-10-27 06:00] VITALS: BP 112/62; TEMP 98.1; O2SAT 96
[2022-10-27 06:26] LABS: BLOOD UREA NITROGEN 16 MG/DL (9-23); CALCIUM LEVEL 7.6 MG/DL (8.3-10.6); CARBON DIOXIDE LEVEL 30 MMOL/L (20-31); CHLORIDE LEVEL 105 MMOL/L (98-107); CREATININE FOR GFR 0.74 MG/DL (0.55-1.30); GLOMERULAR FILTRATION RATE > 60.0 (>39); GLUCOSE, FASTING 96 MG/DL (74-106); POTASSIUM SERUM 3.7 MMOL/L (3.5-5.1); SODIUM LEVEL 138 MMOL/L (136-145)
[2022-10-27] MEDS: APIXABAN 5 MG TAB (ELIQUIS) PO SCH ×2 (08:51→20:37)
[2022-10-27] MEDS: MULTIVITAMINS/MINERALS THERAP 1 TAB PO SCH (08:51)
[2022-10-27] MEDS: DAPAGLIFLOZIN PROPANEDIOL 10MG TABLET (FARXIGA) PO SCH (08:52)
[2022-10-27] MEDS: FUROSEMIDE 20 MG TAB PO SCH (08:52)
[2022-10-27] MEDS ORDERED: ACETAMINOPHEN 500 MG TAB PO PRN (10:15)
[2022-10-27] MEDS: SENOKOT S TAB PO SCH (10:45)
[2022-10-27] MEDS: MIRALAX *UNIT DOSE* 17GM PACKET PO SCH ×2 (10:45→20:37)
[2022-10-27] MEDS: PERCOCET 5MG/325MG TAB PO PRN ×2 (10:46→19:22)
[2022-10-27 14:00] VITALS: BP 119/68; TEMP 98.2; O2SAT 97
[2022-10-27] MEDS: traMADol 50 MG TAB PO PRN ×2 (14:08→20:38)
[2022-10-27 19:43] VITALS: BP 115/66; TEMP 98.1; O2SAT 95
[2022-10-27] MEDS: LATANOPROST 0.005% OPHTH SOLN 2.5 ML OU SCH (20:42)
[2022-10-27 22:00] VITALS: BP 120/76; TEMP 98.2; O2SAT 96
[2022-10-28 05:49] VITALS: BP 118/73; TEMP 96.8; O2SAT 100
[2022-10-28] MEDS ORDERED: MIRA1POW3 PO (07:09)
[2022-10-28] MEDS ORDERED: PERCOCET PO (07:09)
[2022-10-28] MEDS ORDERED: SENN-52 PO (07:09)
[2022-10-28] MEDS ORDERED: TRAM50TA2 PO (07:09)
[2022-10-28] MEDS: MOM 30ML SUSPENSION UDC PO SCH ×2 (08:35→12:53)
[2022-10-28] MEDS: MIRALAX *UNIT DOSE* 17GM PACKET PO SCH ×2 (08:35→21:05)
[2022-10-28] MEDS: SENOKOT S TAB PO SCH ×2 (08:36→21:05)
[2022-10-28] MEDS: PERCOCET 5MG/325MG TAB PO PRN (08:36)
[2022-10-28] MEDS: DAPAGLIFLOZIN PROPANEDIOL 10MG TABLET (FARXIGA) PO SCH (08:36)
[2022-10-28] MEDS: MULTIVITAMINS/MINERALS THERAP 1 TAB PO SCH (08:36)
[2022-10-28] MEDS: FUROSEMIDE 20 MG TAB PO SCH (08:36)
[2022-10-28] MEDS: APIXABAN 5 MG TAB (ELIQUIS) PO SCH ×2 (08:37→21:05)
[2022-10-28] MEDS ORDERED: FLEET ENEMA PR PRN (12:35)
[2022-10-28 13:54] VITALS: BP 121/74; TEMP 98.2; O2SAT 98
[2022-10-28] MEDS: traMADol 50 MG TAB PO PRN ×2 (13:57→21:05)
[2022-10-28] MEDS: LATANOPROST 0.005% OPHTH SOLN 2.5 ML OU SCH (21:10)
[2022-10-28 22:00] VITALS: BP 116/75; TEMP 98.2; O2SAT 96
[2022-10-29 06:00] VITALS: BP 95/51; TEMP 97.2; O2SAT 97
[2022-10-29] MEDS: FUROSEMIDE 20 MG TAB PO SCH (08:18)
[2022-10-29] MEDS: APIXABAN 5 MG TAB (ELIQUIS) PO SCH ×2 (08:20→20:24)
[2022-10-29] MEDS: MULTIVITAMINS/MINERALS THERAP 1 TAB PO SCH (08:20)
[2022-10-29] MEDS: DAPAGLIFLOZIN PROPANEDIOL 10MG TABLET (FARXIGA) PO SCH (08:20)
[2022-10-29] MEDS: MIRALAX *UNIT DOSE* 17GM PACKET PO SCH ×2 (08:20→20:24)
[2022-10-29] MEDS: SENOKOT S TAB PO SCH ×2 (08:21→20:24)
[2022-10-29] MEDS: traMADol 50 MG TAB PO PRN ×2 (08:21→20:25)
[2022-10-29 20:09] VITALS: BP 102/58
[2022-10-29] MEDS: LATANOPROST 0.005% OPHTH SOLN 2.5 ML OU SCH (20:24)
[2022-10-30 06:07] VITALS: BP 112/71; TEMP 97; O2SAT 96
[2022-10-30] MEDS: APIXABAN 5 MG TAB (ELIQUIS) PO SCH ×2 (09:44→20:46)
[2022-10-30] MEDS: MULTIVITAMINS/MINERALS THERAP 1 TAB PO SCH (09:44)
[2022-10-30] MEDS: traMADol 50 MG TAB PO PRN ×2 (09:44→16:37)
[2022-10-30] MEDS: DAPAGLIFLOZIN PROPANEDIOL 10MG TABLET (FARXIGA) PO SCH (09:44)
[2022-10-30] MEDS: MIRALAX *UNIT DOSE* 17GM PACKET PO SCH ×2 (09:45→20:45)
[2022-10-30] MEDS: FUROSEMIDE 20 MG TAB PO SCH (09:45)
[2022-10-30] MEDS: SENOKOT S TAB PO SCH ×2 (09:45→20:46)
[2022-10-30] MEDS: PERCOCET 5MG/325MG TAB PO PRN (20:46)
[2022-10-30] MEDS: LATANOPROST 0.005% OPHTH SOLN 2.5 ML OU SCH (20:48)
[2022-10-31] MEDS: PERCOCET 5MG/325MG TAB PO PRN ×2 (05:34→13:24)
[2022-10-31 06:04] VITALS: BP 109/76; TEMP 98.6; O2SAT 98
[2022-10-31] MEDS: DAPAGLIFLOZIN PROPANEDIOL 10MG TABLET (FARXIGA) PO SCH (10:06)
[2022-10-31] MEDS: FUROSEMIDE 20 MG TAB PO SCH (10:06)
[2022-10-31] MEDS: APIXABAN 5 MG TAB (ELIQUIS) PO SCH ×2 (10:06→20:49)
[2022-10-31] MEDS: SENOKOT S TAB PO SCH ×2 (10:10→20:49)
[2022-10-31] MEDS: MULTIVITAMINS/MINERALS THERAP 1 TAB PO SCH (10:11)
[2022-10-31] MEDS: MIRALAX *UNIT DOSE* 17GM PACKET PO SCH ×2 (11:15→20:49)
[2022-10-31] MEDS: LATANOPROST 0.005% OPHTH SOLN 2.5 ML OU SCH (20:49)
[2022-11-01 06:00] VITALS: BP 130/64; TEMP 97.9; O2SAT 95
[2022-11-01] MEDS: MIRALAX *UNIT DOSE* 17GM PACKET PO SCH ×2 (10:33→21:00)
[2022-11-01] MEDS: DAPAGLIFLOZIN PROPANEDIOL 10MG TABLET (FARXIGA) PO SCH (10:33)
[2022-11-01] MEDS: MULTIVITAMINS/MINERALS THERAP 1 TAB PO SCH (10:34)
[2022-11-01] MEDS: SENOKOT S TAB PO SCH ×2 (10:34→21:00)
[2022-11-01] MEDS: APIXABAN 5 MG TAB (ELIQUIS) PO SCH ×2 (10:34→21:20)
[2022-11-01] MEDS: FUROSEMIDE 20 MG TAB PO SCH (10:35)
[2022-11-01] MEDS: traMADol 50 MG TAB PO PRN (14:42)
[2022-11-01] MEDS: PERCOCET 5MG/325MG TAB PO PRN (21:21)
[2022-11-01] MEDS: LATANOPROST 0.005% OPHTH SOLN 2.5 ML OU SCH (21:22)
[2022-11-02] MEDS ORDERED: PILL CUTTER 1 EACH XX PRN (01:00)
[2022-11-02 05:42] VITALS: BP 112/58; TEMP 97.7; O2SAT 95
[2022-11-02] MEDS: MIRALAX *UNIT DOSE* 17GM PACKET PO SCH ×2 (09:00→21:00)
[2022-11-02] MEDS: SENOKOT S TAB PO SCH ×2 (09:00→21:00)
[2022-11-02] MEDS: DAPAGLIFLOZIN PROPANEDIOL 10MG TABLET (FARXIGA) PO SCH (10:04)
[2022-11-02] MEDS: FUROSEMIDE 20 MG TAB PO SCH (10:05)
[2022-11-02] MEDS: MULTIVITAMINS/MINERALS THERAP 1 TAB PO SCH (10:05)
[2022-11-02] MEDS: APIXABAN 5 MG TAB (ELIQUIS) PO SCH ×2 (10:05→22:00)
[2022-11-02] MEDS: traMADol 50 MG TAB PO PRN (10:45)
[2022-11-02] MEDS: PERCOCET 5MG/325MG TAB PO PRN ×2 (15:46→22:00)
[2022-11-02] MEDS: LATANOPROST 0.005% OPHTH SOLN 2.5 ML OU SCH (22:01)
[2022-11-03 06:00] VITALS: BP 130/68; TEMP 98.1; O2SAT 94
[2022-11-03] MEDS: SENOKOT S TAB PO SCH ×2 (09:00→21:00)
[2022-11-03] MEDS: MIRALAX *UNIT DOSE* 17GM PACKET PO SCH ×3 (09:00→21:18)
[2022-11-03] MEDS: MULTIVITAMINS/MINERALS THERAP 1 TAB PO SCH (09:32)
[2022-11-03] MEDS: DAPAGLIFLOZIN PROPANEDIOL 10MG TABLET (FARXIGA) PO SCH (09:32)
[2022-11-03] MEDS: FUROSEMIDE 20 MG TAB PO SCH (09:32)
[2022-11-03] MEDS: APIXABAN 5 MG TAB (ELIQUIS) PO SCH ×2 (09:33→21:17)
[2022-11-03] MEDS: PERCOCET 5MG/325MG TAB PO PRN ×2 (12:52→23:15)
[2022-11-03] MEDS: LATANOPROST 0.005% OPHTH SOLN 2.5 ML OU SCH (21:17)
[2022-11-04 05:30] VITALS: TEMP 97.3; O2SAT 98
[2022-11-04 06:15] VITALS: BP 112/58
[2022-11-04] MEDS: DAPAGLIFLOZIN PROPANEDIOL 10MG TABLET (FARXIGA) PO SCH (08:23)
[2022-11-04] MEDS: MIRALAX *UNIT DOSE* 17GM PACKET PO SCH ×2 (08:25→21:00)
[2022-11-04] MEDS: MULTIVITAMINS/MINERALS THERAP 1 TAB PO SCH (08:25)
[2022-11-04] MEDS: APIXABAN 5 MG TAB (ELIQUIS) PO SCH ×2 (08:25→21:01)
[2022-11-04] MEDS: FUROSEMIDE 20 MG TAB PO SCH (08:25)
[2022-11-04] MEDS: SENOKOT S TAB PO SCH ×2 (08:26→21:00)
[2022-11-04] MEDS: PERCOCET 5MG/325MG TAB PO PRN ×2 (10:37→18:22)
[2022-11-04] MEDS: LATANOPROST 0.005% OPHTH SOLN 2.5 ML OU SCH (21:01)
[2022-11-04] MEDS: traMADol 50 MG TAB PO PRN (21:01)
[2022-11-05 05:54] VITALS: BP 124/64; TEMP 97.7; O2SAT 97
[2022-11-05] MEDS: PERCOCET 5MG/325MG TAB PO PRN (06:04)
[2022-11-05] MEDS: DAPAGLIFLOZIN PROPANEDIOL 10MG TABLET (FARXIGA) PO SCH (08:55)
[2022-11-05] MEDS: MIRALAX *UNIT DOSE* 17GM PACKET PO SCH (08:55)
[2022-11-05] MEDS: APIXABAN 5 MG TAB (ELIQUIS) PO SCH (08:56)
[2022-11-05] MEDS: MULTIVITAMINS/MINERALS THERAP 1 TAB PO SCH (08:56)
[2022-11-05] MEDS: FUROSEMIDE 20 MG TAB PO SCH (08:56)
[2022-11-05] MEDS: SENOKOT S TAB PO SCH (09:00)
[2022-11-05] MEDS ORDERED: MIRA1POW3 PO (09:33)
[2022-11-05] MEDS ORDERED: SENN-52 PO (09:33)
== END 2022-11-05 11:10 | DRG 481 ==
LOC: M ED 14:56 → EDBD 14:56 → M ED INP 21:31 → M MS5PR 23:27
PROVIDERS: ADMIT Internal Medicine; ATTEND Internal Medicine Nephrology
PROC: 30233N1 Transfusion of Nonautologous Red Blood Cells into Peripheral Vein, Percutaneous Approach (ICD-10-PCS; 2022-10-24)
PROC: BQ13ZZZ Fluoroscopy of Right Femur (ICD-10-PCS; 2022-10-24)
PROC: 0QSB04Z Reposition Right Lower Femur with Internal Fixation Device, Open Approach (ICD-10-PCS; principal; 2022-10-24 07:30)
DX: M84.451A Pathological fracture, right femur, initial encounter for fracture (principal); M97.11XA Periprosthetic fracture around internal prosthetic right knee joint, initial encounter; I50.32 Chronic diastolic (congestive) heart failure; D62 Acute posthemorrhagic anemia; I11.0 Hypertensive heart disease with heart failure; E66.9 Obesity, unspecified; H54.8 Legal blindness, as defined in USA; E78.5 Hyperlipidemia, unspecified; K21.9 Gastro-esophageal reflux disease without esophagitis; G47.33 Obstructive sleep apnea (adult) (pediatric); E03.9 Hypothyroidism, unspecified; I35.8 Other nonrheumatic aortic valve disorders; G25.81 Restless legs syndrome; H40.9 Unspecified glaucoma; Z96.653 Presence of artificial knee joint, bilateral; E83.42 Hypomagnesemia; K59.00 Constipation, unspecified; F32.A Depression, unspecified; Z90.49 Acquired absence of other specified parts of digestive tract; Z98.41 Cataract extraction status, right eye; Z87.891 Personal history of nicotine dependence; Z86.73 Personal history of transient ischemic attack (TIA), and cerebral infarction without residual deficits; Z86.711 Personal history of pulmonary embolism; Z98.84 Bariatric surgery status; Z68.37 Body mass index [BMI] 37.0-37.9, adult; Z20.822 Contact with and (suspected) exposure to COVID-19; Z79.01 Long term (current) use of anticoagulants; Z79.899 Other long term (current) drug therapy; Z88.0 Allergy status to penicillin

== ENCOUNTER → 2022-11-10 | Outpatient (REF) ==
[~2022-11-10] MED LIST changes: +FARX1TAB3 PO; +FURO20TA2 PO; +MIRA1POW3 PO; +PERCOCET PO; +SENN-52 PO; +TRAM50TA2 PO; +VITMTA PO
[2022-11-10 08:14] LABS: HEMATOCRIT 41.2 % (36.0-47.0); MEAN CORPUSCULAR HEMOGLOBIN 31.2 pg (27.0-33.0); MEAN CORPUSCULAR HGB CONC 31.6 g/dl (32.0-36.5); MEAN CORPUSCULAR VOLUME 98.8 fl (80.0-96.0); PLATELET COUNT, AUTOMATED 547 10^3/uL (150-450); RED BLOOD COUNT 4.17 10^6/uL (4.00-5.40); WHITE BLOOD COUNT 6.2 10^3/uL (4.0-10.0)
[2022-11-10 08:50] LABS: ALBUMIN 3.5 G/DL (3.2-5.2); ALKALINE PHOSPHATASE 186 U/L (46-116); ALT/SGPT 14 U/L (7.0-40); AST/SGOT 23 U/L (<34); BILIRUBIN,DIRECT 0.6 MG/DL (<0.4); BILIRUBIN,TOTAL 1.7 MG/DL (0.3-1.2); BLOOD UREA NITROGEN 16 MG/DL (9-23); CALCIUM LEVEL 9.3 MG/DL (8.3-10.6); CARBON DIOXIDE LEVEL 29 MMOL/L (20-31); CHLORIDE LEVEL 102 MMOL/L (98-107); GLOMERULAR FILTRATION RATE > 60.0 (>39); GLUCOSE, FASTING 83 MG/DL (74-106); MAGNESIUM LEVEL 2.3 MG/DL (1.8-2.4); SODIUM LEVEL 139 MMOL/L (136-145); TOTAL PROTEIN 6.5 G/DL (5.7-8.2)
[2022-11-10 08:52] LABS: THYROID STIMULATING HORMONE 3.615 uIU/ML (0.55-4.78); VITAMIN B12 LEVEL 294 PG/ML (211-911)
== END ==
PROVIDERS: ATTEND Physician Assistant
DX: S72.001D Fracture of unspecified part of neck of right femur, subsequent encounter for closed fracture with routine healing (principal)

== ENCOUNTER → 2022-11-12 | Outpatient (REF) | PROVIDERS: ATTEND Physician Assistant | DX: S72.001D Fracture of unspecified part of neck of right femur, subsequent encounter for closed fracture with routine healing (principal); Z53.8 Procedure and treatment not carried out for other reasons ==

== ENCOUNTER → 2022-11-17 | Outpatient (CLI) | payer MEDICARE, MEDICAID, OTHER | LOC: M SOG 09:59 | PROVIDERS: ATTEND Orthopaedic Surgery Hand Surgery | DX: S72.421A Displaced fracture of lateral condyle of right femur, initial encounter for closed fracture (principal); Z96.651 Presence of right artificial knee joint; X58.XXXA Exposure to other specified factors, initial encounter; Y93.9 Activity, unspecified; Y92.9 Unspecified place or not applicable; Y99.9 Unspecified external cause status ==

== ENCOUNTER → 2022-12-22 | Outpatient (CLI) | payer MEDICARE, MEDICAID, OTHER | LOC: M SOG 08:09 | PROVIDERS: ATTEND Physician Assistant | DX: M97.11XD Periprosthetic fracture around internal prosthetic right knee joint, subsequent encounter (principal); Z96.651 Presence of right artificial knee joint ==

== ENCOUNTER → 2023-02-17 | Outpatient (CLI) | payer MEDICARE, MEDICAID | LOC: M PAIN 13:00 | PROVIDERS: ATTEND Nurse Practitioner Family | DX: M25.552 Pain in left hip (principal); M46.1 Sacroiliitis, not elsewhere classified; M25.551 Pain in right hip; G89.29 Other chronic pain; M25.561 Pain in right knee; Z98.84 Bariatric surgery status; Z80.3 Family history of malignant neoplasm of breast; Z87.891 Personal history of nicotine dependence; Z88.0 Allergy status to penicillin; Z79.01 Long term (current) use of anticoagulants; Z79.84 Long term (current) use of oral hypoglycemic drugs; Z79.899 Other long term (current) drug therapy ==

== ENCOUNTER → 2023-03-02 | Outpatient (CLI) | payer MEDICARE, MEDICAID | LOC: M SOG 07:58 | PROVIDERS: ATTEND Orthopaedic Surgery | DX: M97.11XD Periprosthetic fracture around internal prosthetic right knee joint, subsequent encounter (principal); Z96.651 Presence of right artificial knee joint; M17.11 Unilateral primary osteoarthritis, right knee ==

== ENCOUNTER → 2023-04-03 | Outpatient (CLI) | payer MEDICARE, MEDICAID | LOC: M PAIN 15:30 | PROVIDERS: ATTEND Nurse Practitioner Family | DX: M70.62 Trochanteric bursitis, left hip (principal); G89.29 Other chronic pain; Z98.84 Bariatric surgery status; Z86.711 Personal history of pulmonary embolism; Z88.0 Allergy status to penicillin; Z80.3 Family history of malignant neoplasm of breast; Z79.01 Long term (current) use of anticoagulants; Z79.899 Other long term (current) drug therapy ==

== ENCOUNTER → 2023-06-18 | Outpatient (CLI) | payer MEDICARE, MEDICAID ==
[~2023-06-18] MED LIST changes: -MIRA1POW3 PO; +MIRA33506 PO
[2023-06-18 16:45] LABS: HEMATOCRIT 45.7 % (36.0-47.0); MEAN CORPUSCULAR HEMOGLOBIN 30.3 pg (27.0-33.0); MEAN CORPUSCULAR HGB CONC 32.8 g/dl (32.0-36.5); MEAN CORPUSCULAR VOLUME 92.3 fl (80.0-96.0); PLATELET COUNT, AUTOMATED 323 10^3/uL (150-450); RED BLOOD COUNT 4.95 10^6/uL (4.00-5.40); WHITE BLOOD COUNT 8.6 10^3/uL (4.0-10.0)
[2023-06-18 17:14] LABS: ALBUMIN 3.4 G/DL (3.2-5.2); ALKALINE PHOSPHATASE 106 U/L (46-116); ALT/SGPT < 9 U/L (7.0-40); AST/SGOT 23 U/L (<34); BILIRUBIN,TOTAL 0.5 MG/DL (0.3-1.2); BLOOD UREA NITROGEN 13 MG/DL (9-23); CALCIUM LEVEL 8.7 MG/DL (8.3-10.6); CARBON DIOXIDE LEVEL 27 MMOL/L (20-31); CHLORIDE LEVEL 104 MMOL/L (98-107); CREATININE FOR GFR 1.13 MG/DL (0.55-1.30); FERRITIN 20.8 NG/ML (7.3-270.7); GLOMERULAR FILTRATION RATE 49.7 (>39); GLUCOSE, FASTING 114 MG/DL (74-106); POTASSIUM SERUM 4.6 MMOL/L (3.5-5.1); SODIUM LEVEL 136 MMOL/L (136-145); TOTAL 25(OH) VITAMIN D 66.9 NG/ML (20.0-100.0); TOTAL PROTEIN 6.6 G/DL (5.7-8.2)
== END ==
LOC: M PLALAB 14:33
PROVIDERS: ATTEND Nurse Practitioner Adult Health
DX: Z01.818 Encounter for other preprocedural examination (principal); D50.8 Other iron deficiency anemias; R73.01 Impaired fasting glucose; E55.9 Vitamin D deficiency, unspecified; M16.9 Osteoarthritis of hip, unspecified; M25.551 Pain in right hip

== ENCOUNTER → 2023-06-18 | Outpatient (CLI) | payer MEDICARE, MEDICAID ==
[2023-06-18 16:45] LABS: BASO # 0.1 10^3/uL (0.0-0.2); BASO % 0.7 % (0.0-1.0); EOS # 0.1 10^3/uL (0.0-0.5); EOS % 1.1 % (0.0-3.0); HEMATOCRIT 46.9 % (36.0-47.0); HEMOGLOBIN 15.1 g/dl (12.0-15.5); LYMPH # 1.7 10^3/uL (1.5-5.0); LYMPH % 18.9 % (24.0-44.0); MEAN CORPUSCULAR HEMOGLOBIN 30.6 pg (27.0-33.0); MEAN CORPUSCULAR HGB CONC 32.2 g/dl (32.0-36.5); MEAN CORPUSCULAR VOLUME 94.9 fl (80.0-96.0); MONO # 0.7 10^3/uL (0.0-0.8); MONO % 8.3 % (2.0-8.0); NEUTROPHILS # 6.2 10^3/uL (1.5-8.5); NEUTROPHILS % 70.5 % (36.0-66.0); PLATELET COUNT, AUTOMATED 332 10^3/uL (150-450); RED BLOOD COUNT 4.94 10^6/uL (4.00-5.40); WHITE BLOOD COUNT 8.8 10^3/uL (4.0-10.0)
[2023-06-18 17:06] LABS: ALBUMIN 3.4 G/DL (3.2-5.2)
[2023-06-18 17:14] LABS: PERCENT SATURATION 10.6 % (13.2-45.0)
[2023-06-18 17:15] LABS: FERRITIN 20.1 NG/ML (7.3-270.7)
== END ==
LOC: M PLALAB 14:29
PROVIDERS: ATTEND Orthopaedic Surgery
DX: Z01.818 Encounter for other preprocedural examination (principal); M16.9 Osteoarthritis of hip, unspecified; M25.551 Pain in right hip

== ENCOUNTER → 2023-07-28 | Outpatient (CLI) | payer MEDICARE, MEDICAID ==
[2023-07-28 14:01] LABS: BASO % 0.6 % (0.0-1.0); EOS # 0.2 10^3/uL (0.0-0.5); EOS % 2.8 % (0.0-3.0); HEMATOCRIT 44.6 % (36.0-47.0); HEMOGLOBIN 14.4 g/dl (12.0-15.5); LYMPH # 1.9 10^3/uL (1.5-5.0); LYMPH % 28.6 % (24.0-44.0); MEAN CORPUSCULAR HEMOGLOBIN 30.3 pg (27.0-33.0); MEAN CORPUSCULAR HGB CONC 32.3 g/dl (32.0-36.5); MEAN CORPUSCULAR VOLUME 93.9 fl (80.0-96.0); MONO # 0.6 10^3/uL (0.0-0.8); MONO % 9.8 % (2.0-8.0); NEUTROPHILS # 3.8 10^3/uL (1.5-8.5); NEUTROPHILS % 57.9 % (36.0-66.0); PLATELET COUNT, AUTOMATED 319 10^3/uL (150-450); RED BLOOD COUNT 4.75 10^6/uL (4.00-5.40); WHITE BLOOD COUNT 6.5 10^3/uL (4.0-10.0)
[2023-07-28 14:20] LABS: ERYTHROCYTE SEDIMENTATION RATE 53 mm/hr (0-30)
[2023-07-28 14:32] LABS: ALBUMIN 3.3 G/DL (3.2-5.2); ALKALINE PHOSPHATASE 94 U/L (46-116); ALT/SGPT 10 U/L (7.0-40); AST/SGOT 24 U/L (<34); BILIRUBIN,TOTAL 0.6 MG/DL (0.3-1.2); BLOOD UREA NITROGEN 14 MG/DL (9-23); CALCIUM LEVEL 9.2 MG/DL (8.3-10.6); CARBON DIOXIDE LEVEL 28 MMOL/L (20-31); CHLORIDE LEVEL 103 MMOL/L (98-107); CREATININE FOR GFR 0.83 MG/DL (0.55-1.30); FOLATE 19.91 NG/ML (>5.4); GLOMERULAR FILTRATION RATE > 60.0 (>39); GLUCOSE, FASTING 86 MG/DL (74-106); SODIUM LEVEL 140 MMOL/L (136-145); THYROID STIMULATING HORMONE 2.787 uIU/ML (0.55-4.78); TOTAL PROTEIN 6.2 G/DL (5.7-8.2)
[2023-07-28 14:33] LABS: VITAMIN B12 LEVEL > 2000 PG/ML (211-911)
[2023-07-28 14:59] LABS: HEMOGLOBIN A1c 5.1 % (4.0-6.0)
== END ==
LOC: M PLALAB 11:05
PROVIDERS: ATTEND Psychiatry & Neurology Neurology
DX: R41.9 Unspecified symptoms and signs involving cognitive functions and awareness (principal); Z79.899 Other long term (current) drug therapy

== ENCOUNTER 2023-08-25 16:22 | Emergency (ER) | payer MEDICARE, MEDICAID ==
[~2023-08-25] VITALS: Ht 154.9 cm; Wt 87.7 kg
[2023-08-25 17:04] LABS: BASO % 0.3 % (0.0-1.0); HEMATOCRIT 45.3 % (36.0-47.0); HEMOGLOBIN 14.9 g/dl (12.0-15.5); LYMPH # 1.2 10^3/uL (1.5-5.0); LYMPH % 15.7 % (24.0-44.0); MEAN CORPUSCULAR HEMOGLOBIN 29.8 pg (27.0-33.0); MEAN CORPUSCULAR HGB CONC 32.9 g/dl (32.0-36.5); MEAN CORPUSCULAR VOLUME 90.6 fl (80.0-96.0); MONO # 0.6 10^3/uL (0.0-0.8); MONO % 8.2 % (2.0-8.0); NEUTROPHILS # 5.6 10^3/uL (1.5-8.5); NEUTROPHILS % 75.4 % (36.0-66.0); PLATELET COUNT, AUTOMATED 303 10^3/uL (150-450); WHITE BLOOD COUNT 7.4 10^3/uL (4.0-10.0)
[2023-08-25] MEDS: NS 500 ML IV ONE (17:23)
[2023-08-25 17:24] LABS: LIPASE 25 U/L (12-53)
[2023-08-25 17:29] LABS: ALKALINE PHOSPHATASE 107 U/L (46-116); ALT/SGPT 13 U/L (7.0-40); AST/SGOT 21 U/L (<34); BILIRUBIN,DIRECT 0.5 MG/DL (<0.4); BILIRUBIN,TOTAL 1.3 MG/DL (0.3-1.2); BLOOD UREA NITROGEN 9 MG/DL (9-23); CARBON DIOXIDE LEVEL 27 MMOL/L (20-31); CHLORIDE LEVEL 106 MMOL/L (98-107); CK-MB VALUE MASS < 1.0 NG/ML (<3.6); CREATININE FOR GFR 0.65 MG/DL (0.55-1.30); GLOMERULAR FILTRATION RATE > 60.0 (>39); GLUCOSE, FASTING 110 MG/DL (74-106); MAGNESIUM LEVEL 1.7 MG/DL (1.8-2.4); POTASSIUM SERUM 3.6 MMOL/L (3.5-5.1); SODIUM LEVEL 140 MMOL/L (136-145); TOTAL PROTEIN 6.1 G/DL (5.7-8.2)
[2023-08-25 17:30] LABS: FREE T4 0.98 NG/DL (0.89-1.76)
[2023-08-25 17:35] LABS: CPK CREATINE PHOSPHOKINASE 67 U/L (34-145); MB/CK RELATIVE INDEX 1.49 (< OR =4)
[2023-08-25] MEDS: NS 1,000 ML IV SCH (17:59)
[2023-08-25 18:15] VITALS: BP 163/87; TEMP 97.3; O2SAT 99
[2023-08-25] MEDS: MAGNESIUM OXIDE 400MG TAB (MAG-OX) PO ONE (18:21)
== END 2023-08-25 18:27 | disposition home or self-care (01) ==
LOC: EDBD 16:22 → M ED 16:22
DX: R55 Syncope and collapse (principal); E83.42 Hypomagnesemia; K21.9 Gastro-esophageal reflux disease without esophagitis; F43.10 Post-traumatic stress disorder, unspecified; F32.9 Major depressive disorder, single episode, unspecified; E78.5 Hyperlipidemia, unspecified; Z86.79 Personal history of other diseases of the circulatory system; Z98.84 Bariatric surgery status; Z86.73 Personal history of transient ischemic attack (TIA), and cerebral infarction without residual deficits; Z79.01 Long term (current) use of anticoagulants; Z79.899 Other long term (current) drug therapy

== ENCOUNTER → 2023-11-05 | Outpatient (CLI) | payer MEDICARE, MEDICAID ==
[2023-11-05 10:34] LABS: HEMOGLOBIN 13.4 g/dl (12.0-15.5); MEAN CORPUSCULAR HEMOGLOBIN 29.2 pg (27.0-33.0); MEAN CORPUSCULAR HGB CONC 31.9 g/dl (32.0-36.5); MEAN CORPUSCULAR VOLUME 91.5 fl (80.0-96.0); PLATELET COUNT, AUTOMATED 521 10^3/uL (150-450); RED BLOOD COUNT 4.59 10^6/uL (4.00-5.40); WHITE BLOOD COUNT 7.3 10^3/uL (4.0-10.0)
[2023-11-05 10:57] LABS: ALBUMIN 2.9 G/DL (3.2-5.2); ALKALINE PHOSPHATASE 147 U/L (46-116); ALT/SGPT 14 U/L (7.0-40); AST/SGOT 21 U/L (<34); BILIRUBIN,TOTAL 0.3 MG/DL (0.3-1.2); BLOOD UREA NITROGEN 13 MG/DL (9-23); CALCIUM LEVEL 8.8 MG/DL (8.3-10.6); CARBON DIOXIDE LEVEL 25 MMOL/L (20-31); CHLORIDE LEVEL 108 MMOL/L (98-107); CHOLESTEROL LEVEL 201 MG/DL (<200); CHOLESTEROL RISK RATIO 3.53 (<5); CREATININE FOR GFR 0.77 MG/DL (0.55-1.30); GLOMERULAR FILTRATION RATE > 60.0 (>39); GLUCOSE, FASTING 114 MG/DL (74-106); HDL CHOLESTEROL 56.8 MG/DL (>40); NON-HDL-C 144.2 MG/DL; POTASSIUM SERUM 4.1 MMOL/L (3.5-5.1); SODIUM LEVEL 142 MMOL/L (136-145); TOTAL PROTEIN 6.4 G/DL (5.7-8.2); TRIGLYCERIDES LEVEL 86 MG/DL (<150)
[2023-11-05 10:58] LABS: FERRITIN 20.4 NG/ML (7.3-270.7)
[2023-11-05 11:10] LABS: HEMOGLOBIN A1c 5.3 % (4.0-6.0)
[2023-11-06 15:29] LABS: ERYTHROCYTE SEDIMENTATION RATE 114 mm/hr (0-30)
== END ==
LOC: M LAB 09:19
PROVIDERS: ATTEND Nurse Practitioner Adult Health
DX: D50.8 Other iron deficiency anemias (principal); R73.01 Impaired fasting glucose; E55.9 Vitamin D deficiency, unspecified; Z13.220 Encounter for screening for lipoid disorders; I50.9 Heart failure, unspecified; M25.569 Pain in unspecified knee; Z96.653 Presence of artificial knee joint, bilateral
CPT/HCPCS: 36415; 78315; 80053; 80061; 82652; 82728; 83036; 85027; 85652; A9503

== ENCOUNTER → 2023-11-05 | Outpatient (CLI) | payer MEDICARE, MEDICAID | LOC: M RAD 09:04 | PROVIDERS: ATTEND Orthopaedic Surgery | DX: M25.569 Pain in unspecified knee (principal); Z96.653 Presence of artificial knee joint, bilateral ==

== ENCOUNTER → 2023-11-25 | Outpatient (CLI) | payer MEDICARE, MEDICAID ==
[2023-11-25 15:28] LABS: HEMATOCRIT 41.6 % (36.0-47.0); HEMOGLOBIN 13.4 g/dl (12.0-15.5); MEAN CORPUSCULAR HEMOGLOBIN 28.9 pg (27.0-33.0); MEAN CORPUSCULAR HGB CONC 32.2 g/dl (32.0-36.5); MEAN CORPUSCULAR VOLUME 89.8 fl (80.0-96.0); PLATELET COUNT, AUTOMATED 437 10^3/uL (150-450); RED BLOOD COUNT 4.63 10^6/uL (4.00-5.40); WHITE BLOOD COUNT 7.5 10^3/uL (4.0-10.0)
== END ==
LOC: M PLALAB 13:30
PROVIDERS: ATTEND Nurse Practitioner Adult Health
DX: D50.8 Other iron deficiency anemias (principal)

== ENCOUNTER → 2023-12-07 | Outpatient (CLI) | payer MEDICARE, MEDICAID ==
[2023-12-07 15:38] LABS: BASO % 0.5 % (0.0-1.0); EOS # 0.1 10^3/uL (0.0-0.5); EOS % 1.1 % (0.0-3.0); HEMATOCRIT 44.8 % (36.0-47.0); HEMOGLOBIN 14.4 g/dl (12.0-15.5); LYMPH # 1.9 10^3/uL (1.5-5.0); LYMPH % 25.8 % (24.0-44.0); MEAN CORPUSCULAR HEMOGLOBIN 28.1 pg (27.0-33.0); MEAN CORPUSCULAR HGB CONC 32.1 g/dl (32.0-36.5); MEAN CORPUSCULAR VOLUME 87.5 fl (80.0-96.0); MONO # 0.6 10^3/uL (0.0-0.8); MONO % 7.6 % (2.0-8.0); NEUTROPHILS # 4.9 10^3/uL (1.5-8.5); NEUTROPHILS % 64.7 % (36.0-66.0); PLATELET COUNT, AUTOMATED 432 10^3/uL (150-450); RED BLOOD COUNT 5.12 10^6/uL (4.00-5.40); WHITE BLOOD COUNT 7.5 10^3/uL (4.0-10.0)
[2023-12-07 15:54] LABS: ERYTHROCYTE SEDIMENTATION RATE 87 mm/hr (0-30)
== END ==
LOC: M LAB 15:14
PROVIDERS: ATTEND Orthopaedic Surgery
DX: M25.561 Pain in right knee (principal)

== ENCOUNTER → 2024-01-19 | Outpatient (CLI) | payer MEDICARE, MEDICAID ==
[2024-01-19 17:38] LABS: BASO % 0.4 % (0.0-1.0); EOS # 0.1 10^3/uL (0.0-0.5); EOS % 1.5 % (0.0-3.0); HEMATOCRIT 42.8 % (36.0-47.0); HEMOGLOBIN 13.3 g/dl (12.0-15.5); LYMPH % 29.1 % (24.0-44.0); MEAN CORPUSCULAR HEMOGLOBIN 26.9 pg (27.0-33.0); MEAN CORPUSCULAR HGB CONC 31.1 g/dl (32.0-36.5); MEAN CORPUSCULAR VOLUME 86.6 fl (80.0-96.0); MONO # 0.6 10^3/uL (0.0-0.8); MONO % 8.7 % (2.0-8.0); NEUTROPHILS # 4.1 10^3/uL (1.5-8.5); PLATELET COUNT, AUTOMATED 425 10^3/uL (150-450); RED BLOOD COUNT 4.94 10^6/uL (4.00-5.40); WHITE BLOOD COUNT 6.9 10^3/uL (4.0-10.0)
[2024-01-19 17:42] LABS: ERYTHROCYTE SEDIMENTATION RATE 75 mm/hr (0-30)
== END ==
LOC: M PLALAB 15:23
PROVIDERS: ATTEND Orthopaedic Surgery
DX: M25.569 Pain in unspecified knee (principal)

== ENCOUNTER → 2024-02-04 | Outpatient (CLI) | payer MEDICARE, MEDICAID ==
[2024-02-04 15:12] LABS: HEMATOCRIT 39.8 % (36.0-47.0); HEMOGLOBIN 12.4 g/dl (12.0-15.5); MEAN CORPUSCULAR HEMOGLOBIN 27.6 pg (27.0-33.0); MEAN CORPUSCULAR HGB CONC 31.2 g/dl (32.0-36.5); MEAN CORPUSCULAR VOLUME 88.6 fl (80.0-96.0); PLATELET COUNT, AUTOMATED 395 10^3/uL (150-450); RED BLOOD COUNT 4.49 10^6/uL (4.00-5.40); WHITE BLOOD COUNT 8.8 10^3/uL (4.0-10.0)
[2024-02-04 15:17] LABS: ALBUMIN 3.2 G/DL (3.2-5.2); ALKALINE PHOSPHATASE 110 U/L (35-104); ALT/SGPT < 9 U/L (7.0-40); AST/SGOT 17 U/L (<34); BILIRUBIN,TOTAL 0.6 MG/DL (0.3-1.2); BLOOD UREA NITROGEN 22 MG/DL (9-23); CALCIUM LEVEL 9.3 MG/DL (8.3-10.6); CARBON DIOXIDE LEVEL 24 MMOL/L (20-31); CHLORIDE LEVEL 111 MMOL/L (98-107); CHOLESTEROL LEVEL 188 MG/DL (<200); CHOLESTEROL RISK RATIO 2.47 (<5); CREATININE FOR GFR 0.88 MG/DL (0.55-1.30); GLOMERULAR FILTRATION RATE > 60.0 (>39); GLUCOSE, FASTING 102 MG/DL (74-106); HDL CHOLESTEROL 75.9 MG/DL (>40); LDL CHOLESTEROL 93.1 MG/DL (<100); MAGNESIUM LEVEL 1.9 MG/DL (1.8-2.4); NON-HDL-C 112.1 MG/DL; SODIUM LEVEL 142 MMOL/L (136-145); TOTAL PROTEIN 6.7 G/DL (5.7-8.2); TRIGLYCERIDES LEVEL 95 MG/DL (<150)
[2024-02-04 15:31] LABS: HEMOGLOBIN A1c 5.3 % (4.0-6.0)
[2024-02-04 15:59] LABS: FERRITIN 13.8 NG/ML (7.3-270.7)
[2024-02-04 16:00] LABS: FREE T4 1.07 NG/DL (0.89-1.76)
== END ==
LOC: M PLALAB 12:43
PROVIDERS: ATTEND Nurse Practitioner Adult Health
DX: D50.8 Other iron deficiency anemias (principal); R73.01 Impaired fasting glucose; Z13.220 Encounter for screening for lipoid disorders; I50.9 Heart failure, unspecified; E55.9 Vitamin D deficiency, unspecified; I45.81 Long QT syndrome

== ENCOUNTER → 2024-02-04 | Outpatient (CLI) | payer MEDICARE, MEDICAID | LOC: M PLAIMG 12:37 | PROVIDERS: ATTEND Orthopaedic Surgery | DX: Z96.651 Presence of right artificial knee joint (principal); M25.569 Pain in unspecified knee; D50.8 Other iron deficiency anemias; R73.01 Impaired fasting glucose; Z13.220 Encounter for screening for lipoid disorders; I50.9 Heart failure, unspecified; E55.9 Vitamin D deficiency, unspecified; I45.81 Long QT syndrome ==

== ENCOUNTER 2024-04-22 10:42 | Outpatient (CLI) | payer MEDICARE, MEDICAID ==
[~2024-04-22 10:42] MED LIST changes: +ALBUTEROL SULFATE 2.5MG/0.5ML INH NEB SOLN INH PRN; +EPINEPHrine INJ 1 MG/ML 1ML AMP IM PRN; +diphenhydrAMINE 50MG/ML VIAL IV PRN; +methylPREDNISolone 125MG 2ML VIAL IV PRN
[2024-04-22 11:00] VITALS: BP 151/77; O2SAT 96
[2024-04-22] MEDS: IRON SUCROSE 200MG IVP IV ONE (11:00)
[2024-04-22 11:52] VITALS: BP 153/78; O2SAT 99
== END 2024-04-22 12:05 | disposition home or self-care (01) ==
LOC: M INFU 10:42
PROVIDERS: ATTEND Nurse Practitioner Adult Health
DX: Z98.84 Bariatric surgery status (principal)
CPT/HCPCS: 96374; J1756

== ENCOUNTER → 2024-04-29 | Outpatient (CLI) | payer MEDICARE, MEDICAID ==
[~2024-04-29] VITALS: Ht 154.9 cm; Wt 95.2 kg
[2024-04-29] MEDS: IRON SUCROSE 200 MG IVP IV ONE (13:50)
[2024-04-29 14:00] VITALS: BP 154/72; O2SAT 100
[2024-04-29 14:30] VITALS: BP 121/56; O2SAT 98
== END ==
LOC: M INFU 13:12
PROVIDERS: ATTEND Nurse Practitioner Adult Health
DX: D50.9 Iron deficiency anemia, unspecified (principal); Z98.84 Bariatric surgery status
CPT/HCPCS: 96374; J1756

== ENCOUNTER 2024-05-06 11:20 | Outpatient (CLI) | payer MEDICARE, MEDICAID ==
[2024-05-06 11:20] VITALS: BP 164/80; O2SAT 94
[~2024-05-06 11:20] MED LIST changes: +ALBUTEROL SULFATE 2.5MG/0.5ML INH NEB SOLN INH PRN; +EPINEPHrine INJ 1 MG/ML 1ML AMP IM PRN; +diphenhydrAMINE 50MG/ML VIAL IV PRN; +methylPREDNISolone 125MG 2ML VIAL IV PRN
[2024-05-06] MEDS: IRON SUCROSE 200MG IVP IV ONE (11:43)
[2024-05-06 11:58] LABS: HEMATOCRIT 37.4 % (36.0-47.0); HEMOGLOBIN 11.8 g/dl (12.0-15.5); MEAN CORPUSCULAR HGB CONC 31.6 g/dl (32.0-36.5); MEAN CORPUSCULAR VOLUME 88.6 fl (80.0-96.0); PLATELET COUNT, AUTOMATED 345 10^3/uL (150-450); RED BLOOD COUNT 4.22 10^6/uL (4.00-5.40); WHITE BLOOD COUNT 5.1 10^3/uL (4.0-10.0)
[2024-05-06 12:24] LABS: IRON (FE) 43 UG/DL (50-170)
[2024-05-06 12:26] LABS: FERRITIN 113.1 NG/ML (7.3-270.7)
[2024-05-06 12:27] LABS: FREE T4 1.01 NG/DL (0.89-1.76)
[2024-05-06 12:40] VITALS: BP 118/88; O2SAT 98
[2024-05-06 13:05] LABS: HEMOGLOBIN A1c 5.3 % (4.0-6.0)
[2024-05-06 13:13] LABS: ALBUMIN 2.5 G/DL (3.2-5.2); ALKALINE PHOSPHATASE 84 U/L (35-104); ALT/SGPT < 9 U/L (7.0-40); AST/SGOT 13 U/L (<34); BILIRUBIN,TOTAL 0.5 MG/DL (0.3-1.2); BLOOD UREA NITROGEN 14 MG/DL (9-23); CALCIUM LEVEL 7.1 MG/DL (8.3-10.6); CARBON DIOXIDE LEVEL 23 MMOL/L (20-31); CHLORIDE LEVEL 115 MMOL/L (98-107); CREATININE FOR GFR 0.62 MG/DL (0.55-1.30); GLOMERULAR FILTRATION RATE > 60.0 (>39); GLUCOSE, FASTING 98 MG/DL (74-106); POTASSIUM SERUM 3.8 MMOL/L (3.5-5.1); SODIUM LEVEL 142 MMOL/L (136-145); TOTAL PROTEIN 5.4 G/DL (5.7-8.2)
== END 2024-05-06 12:40 ==
LOC: M INFU 11:20
PROVIDERS: ATTEND Nurse Practitioner Adult Health
DX: D50.8 Other iron deficiency anemias (principal); Z98.84 Bariatric surgery status; Z12.31 Encounter for screening mammogram for malignant neoplasm of breast; R92.313 Mammographic fatty tissue density, bilateral breasts; R73.01 Impaired fasting glucose; E55.9 Vitamin D deficiency, unspecified
CPT/HCPCS: 77063; 77067; 80053; 82652; 82728; 83036; 83540; 84439; 84443; 85027; 96374; J1756

== ENCOUNTER → 2024-05-06 | Outpatient (CLI) | payer MEDICARE, MEDICAID ==
[~2024-05-06] MED LIST changes: -ALBUTEROL SULFATE 2.5MG/0.5ML INH NEB SOLN INH PRN; -EPINEPHrine INJ 1 MG/ML 1ML AMP IM PRN; -diphenhydrAMINE 50MG/ML VIAL IV PRN; -methylPREDNISolone 125MG 2ML VIAL IV PRN
== END ==
LOC: M WHC 13:05
PROVIDERS: ATTEND Nurse Practitioner Adult Health
DX: Z12.31 Encounter for screening mammogram for malignant neoplasm of breast (principal); R92.313 Mammographic fatty tissue density, bilateral breasts

== ENCOUNTER 2024-05-13 12:45 | Outpatient (CLI) | payer MEDICARE, MEDICAID ==
[2024-05-13] MEDS: IRON SUCROSE 200MG IVP IV ONE (12:53)
[2024-05-13 13:35] VITALS: BP 117/64; O2SAT 97
[2024-05-13 13:59] VITALS: BP 103/53; O2SAT 96
== END 2024-05-13 13:35 ==
LOC: M INFU 12:45
PROVIDERS: ATTEND Nurse Practitioner Adult Health
DX: D50.9 Iron deficiency anemia, unspecified (principal); Z98.84 Bariatric surgery status
CPT/HCPCS: 96374; J1756

== ENCOUNTER → 2024-08-04 | Outpatient (CLI) | payer MEDICARE, MEDICAID ==
[~2024-08-04] MED LIST changes: -ALBUTEROL SULFATE 2.5MG/0.5ML INH NEB SOLN INH PRN; +BUPR-670 PO; -BUPR1TAB52 PO; -EPINEPHrine INJ 1 MG/ML 1ML AMP IM PRN; -diphenhydrAMINE 50MG/ML VIAL IV PRN; -methylPREDNISolone 125MG 2ML VIAL IV PRN
[2024-08-04 15:31] LABS: HEMOGLOBIN 14.9 g/dl (12.0-15.5); MEAN CORPUSCULAR HGB CONC 32.4 g/dl (32.0-36.5); MEAN CORPUSCULAR VOLUME 92.6 fl (80.0-96.0); PLATELET COUNT, AUTOMATED 301 10^3/uL (150-450); RED BLOOD COUNT 4.97 10^6/uL (4.00-5.40); WHITE BLOOD COUNT 5.5 10^3/uL (4.0-10.0)
[2024-08-04 15:39] LABS: HEMOGLOBIN A1c 5.2 % (4.0-6.0)
[2024-08-04 15:48] LABS: ALBUMIN 3.2 G/DL (3.2-5.2); BILIRUBIN,TOTAL 0.7 MG/DL (0.3-1.2); CALCIUM LEVEL 8.9 MG/DL (8.3-10.6); CREATININE FOR GFR 0.72 MG/DL (0.55-1.30); FERRITIN 52.2 NG/ML (7.3-270.7); GLOMERULAR FILTRATION RATE 85.5 (>39); POTASSIUM SERUM 5.5 MMOL/L (3.5-5.1); TOTAL PROTEIN 6.5 G/DL (5.7-8.2)
== END ==
LOC: M PLALAB 13:21
PROVIDERS: ATTEND Nurse Practitioner Adult Health
DX: R73.01 Impaired fasting glucose (principal); E55.9 Vitamin D deficiency, unspecified; D50.8 Other iron deficiency anemias; I50.9 Heart failure, unspecified

== ENCOUNTER → 2025-02-08 | Outpatient (CLI) | payer MEDICARE, MEDICAID ==
[2025-02-08 15:40] LABS: PLATELET COUNT, AUTOMATED 388 10^3/uL (150-450)
[2025-02-08 15:41] LABS: ALT/SGPT 10.0 U/L (7.0-40); AST/SGOT 22.0 U/L (<34); CALCIUM LEVEL 8.7 MG/DL (8.3-10.6); CARBON DIOXIDE LEVEL 28.0 MMOL/L (20-31); CHLORIDE LEVEL 105.0 MMOL/L (98-107); CREATININE FOR GFR 0.86 MG/DL (0.55-1.30); GLOMERULAR FILTRATION RATE 69.1 (>39); MAGNESIUM LEVEL 2.0 MG/DL (1.8-2.4); POTASSIUM SERUM 4.2 MMOL/L (3.5-5.1); SODIUM LEVEL 141.0 MMOL/L (136-145)
[2025-02-08 15:46] LABS: FREE T4 0.92 NG/DL (0.89-1.76)
[2025-02-08 15:48] LABS: ESTIMATED AVERAGE GLUCOSE 108.0 MG/DL (60-110)
== END ==
LOC: M PLALAB 13:14
PROVIDERS: ATTEND Nurse Practitioner Adult Health
DX: D50.8 Other iron deficiency anemias (principal); I45.81 Long QT syndrome; I50.9 Heart failure, unspecified; R73.01 Impaired fasting glucose; E55.9 Vitamin D deficiency, unspecified

== ENCOUNTER → 2025-02-17 | Outpatient (CLI) | payer MEDICARE, MEDICAID | LOC: M PLALAB 14:43 | PROVIDERS: ATTEND Nurse Practitioner Family | DX: Z79.891 Long term (current) use of opiate analgesic (principal) | CPT/HCPCS: 36415; 80307; G0480 ==